=== PATIENT | female | born 1955 | race Caucasian/White ===

== ENCOUNTER → 2017-06-05 10:00 | Outpatient (CLI) | payer MEDICARE, SELFPAY ==
--- NOTE | 2017-06-05 10:04 | ADUL_ITS ---
Reason For Study: Atherosclerosis with claudication Right Velocities Ext. Iliac Artery, dist = 116.0 cm./sec. Common Femoral Artery, prox = 88.0 cm./sec. Anastomosis - 55.1 cm/s Absent color flow and doppler signal for length of graft. Profunda Femoral Artery = 48.1 cm./sec. Popliteal Artery, prox. = 23.1 cm./sec. Popliteal Artery, mid = 50.7 cm./sec. Popliteal Artery, dist = 25.9 cm./sec. Post. Tibial Artery, prox = 23.8 cm./sec. Post. Tibial Artery, mid = 12.1 cm./sec. Post. Tibial Artery, dist = 17.4 cm./sec. Peroneal Artery, prox = 20.5 cm./sec. Peroneal Artery, mid = 16.7 cm./sec. Peroneal Artery,dist = 25.7 cm./sec. Ant. Tibial Artery, prox = 42.9 cm./sec. Ant. Tibial Artery, mid = 15.2 cm./sec. Ant. Tibial Artery, dist = 8.1 cm./sec. Procedure Exam performed in department. Interpretation Summary 1. right SFA occluded. 2. Triphasic flow in [employer] and biphasic in profunda and monophasic from popliteal through tibials. Ordering Physician: Jeffrey Tolentino Referring Physician: Jeffrey Tolentino Performed By: Brunilda Tyler RVT
--- NOTE | 2017-06-06 12:14 | LEAS ---
Arterial Study - Arterial Study Arterial Study: Patient: ARIEL SCHULER ER Date of scan 06/05/[address] Tolentino Interpretation: Right lower extremity with pulsatile flow noted at the ankle with biphasic waveform noted of both vessels at the ankle with an JENNIFER 0.64 the posterior tibial 0.6 to the dorsalis pedis. Left lower extremity with again normal triphasic flow noted throughout both vessels at the ankle with an JENNIFER 0.97 in the posterior tibial 1.01 of the dorsalis pedis. Next Impression: 1. Right lower extremity with moderate arterial occlusive disease with an JENNIFER 0.64 2. Left lower extremity with no evidence of significant occlusive disease with an JENNIFER 1.0
--- NOTE | 2017-06-06 12:18 | LEAS_ITS ---
Arterial Study - Arterial Study Arterial Study: Patient: ARIEL SCHULER ER Date of scan 06/05/[address] Tolentino Interpretation: Right lower extremity with pulsatile flow noted at the ankle with biphasic waveform noted of both vessels at the ankle with an JENNIFER 0.64 the posterior tibial 0.6 to the dorsalis pedis. Left lower extremity with again normal triphasic flow noted throughout both vessels at the ankle with an JENNIFER 0.97 in the posterior tibial 1.01 of the dorsalis pedis. Next Impression: 1. Right lower extremity with moderate arterial occlusive disease with an JENNIFER 0.64 2. Left lower extremity with no evidence of significant occlusive disease with an JENNIFER 1.0
== END ==
PROVIDERS: Family Provider Family Medicine; PCP Family Medicine; Visit Provider Surgery Vascular Surgery
DX: I70.212 Atherosclerosis of native arteries of extremities with intermittent claudication, left leg (principal)
CPT/HCPCS: 93922; 93926

== ENCOUNTER → 2017-11-30 09:37 | Outpatient (CLI) | payer MEDICARE, SELFPAY ==
--- NOTE | 2017-11-30 09:40 | ADU_ITS ---
Reason For Study: Atherosclerosis with claudication Right Velocities Left Velocities Ext. Iliac Artery, dist = 91.1 cm./sec. Ext Iliac Artery, dist = 97.2 cm./sec. Common Femoral Artery, prox = 86.4 cm./sec. Common Femoral Artery, prox = 124.0 cm./sec. No color flow or doppler signal for length of Supf. Femoral Artery, prox = 107.0 cm./sec. graft. Supf. Femoral Artery, mid = 84.1 cm./sec. Profunda Femoral Artery = 118.0 cm./sec. Supf. Femoral Artery, dist = 78.6 cm./sec. Popliteal Artery, prox. = 31.0 cm./sec. Profunda Femoral Artery = 55.8 cm./sec. Popliteal Artery, mid = 27.9 cm./sec. Popliteal Artery, proximal, = 48.1 cm./sec. Popliteal Artery, dist = 28.7 cm./sec. Popliteal Artery, mid = 39.9 cm./sec. Post. Tibial Artery, prox = 21.2 cm./sec. Popliteal Artery, distal = 58.6 cm./sec. Post. Tibial Artery, mid = 14.5 cm./sec. Post. Tibial Artery, prox = 63.3 cm./sec. Post. Tibial Artery, dist = 21.6 cm./sec. Post Tibial Artery, mid = 27.0 cm./sec. Peroneal Artery, prox = 20.0 cm./sec. Post Tibial Artery, dist. = 44.0 cm./sec. Peroneal Artery, mid = 19.2 cm./sec. Peroneal Artery,dist. = 10.0 cm./sec. Peroneal Artery,dist = 12.0 cm./sec. Ant.Tibial Artery, prox = 45.2 cm./sec. Ant. Tibial Artery, prox = 13.9 cm./sec. Ant Tibial Artery, mid = 37.7 cm./sec. Ant. Tibial Artery, mid = 14.5 cm./sec. Ant. Tibial Artery, distal = 70.3 cm./sec. Ant. Tibial Artery, dist = 11.2 cm./sec. Procedure Exam performed in department. Interpretation Summary 1. Right SFa and BPg occluded and large collaterals with biphasic flow into foot. 2. Left leg with no stenosis seen. Ordering Physician: Jeffrey Tolentino Referring Physician: Eron Taveras Performed By: Brunilda Tyler RVT
--- NOTE | 2017-12-05 08:17 | LEAS ---
Arterial Study - Arterial Study Arterial Study: Patsy Moody Date of scan 11/30/[address] Tolentino History: Patient with claudication Interpretation: Right lower extremity has biphasic flow noted at the ankle of both vessels. With an JENNIFER 0.63 of the PT and 0.67 of the DP. Digit brachial index 0.57. Next Left lower extremity with triphasic flow noted throughout at the ankle with the PT at 0.96 DP 1.08. Digit brachial index 0.89. Impression: 1. Right leg with moderate arterial occlusive disease with an JENNIFER 0.67. 2. Left lower extremity with normal arterial flow at rest with an JENNIFER 1.08
== END ==
PROVIDERS: Family Provider Family Medicine; PCP Family Medicine; Visit Provider Surgery Vascular Surgery
DX: I70.213 Atherosclerosis of native arteries of extremities with intermittent claudication, bilateral legs (principal); I70.90 Unspecified atherosclerosis; I73.1 Thromboangiitis obliterans [Buerger's disease]; E11.9 Type 2 diabetes mellitus without complications; I10 Essential (primary) hypertension; M79.609 Pain in unspecified limb; G54.0 Brachial plexus disorders; Z87.891 Personal history of nicotine dependence
CPT/HCPCS: 93922; 93925

== ENCOUNTER → 2019-04-04 10:38 | Outpatient (CLI) | payer MEDICARE, SELFPAY ==
--- NOTE | 2019-04-04 10:44 | ART_ITS ---
Reason For Study: Claudication Procedure A bilateral lower extremity continuous wave Doppler with analog waveform analysis and ankle brachial indexes. Left Segmental Pressures Left brachial= 131mmHg. Left posterior tibial artery = 99mmHg. Left dorsalis pedis artery = 132mmHg. Left digit = 89 mmHg. The left dorsalis pedis waveforms are triphasic. The left posterior tibial artery waveforms are triphasic. Right Segmental Pressures Right brachial= 124mmHg. Right posterior tibial artery = 49mmHg. Right dorsalis pedis artery = 71mmHg. Right digit = 36 mmHg. The right dorsalis pedis waveforms are biphasic. The right posterior tibial artery waveforms are biphasic. Indices The right ankle brachial index by the dorsalis pedis is 0.54. The right ankle brachial index by the posterior tibial artery is 0.37. The right digital-brachial index is 0.27. The left ankle brachial index by the dorsalis pedis is 1.01. The left ankle brachial index by the posterior tibial artery is 0.76. The left digital-brachial index is 0.68. Interpretation Summary 1. Right leg with moderate occlussive disease and JENNIFER 0.54 and DBI 0.27. 2. Left leg normal at rst with JENNIFER 1.01 and DBI 0.68. Ordering Physician: Jeffrey Tolentino Referring Physician: darryl Person Performed By: Muriel Wu RVT
== END ==
PROVIDERS: Family Provider Student in an Organized Health Care Education/Training Program; PCP Student in an Organized Health Care Education/Training Program; Referring Provider Surgery Vascular Surgery; Visit Provider Surgery Vascular Surgery
DX: I70.213 Atherosclerosis of native arteries of extremities with intermittent claudication, bilateral legs (principal)
CPT/HCPCS: 93922

== ENCOUNTER → 2019-05-09 12:07 | Outpatient (CLI) | payer MEDICARE, SELFPAY ==
[2019-04-22 06:27] VITALS: BMI 30.8
[2019-05-09 13:19] VITALS: PULSE 103; PULSE 107; PULSE 109; PULSE 110; PULSE 111; O2SAT 93; O2SAT 94; O2SAT 95; O2SAT 96; O2SAT 97; O2SAT 98
--- NOTE | 2019-05-10 10:08 | PCM.PSN.6M ---
PSN 6 Minute Walk Test - 6 Minute Walk Test 6 Minute Walk Test: 6 Minute Walk Test PSN:6-Minute Walk Test Start: 05/09/19 13:19 Freq: Status: Active Protocol: [id number].6MINW Document 05/09/19 13:19 [facility] (Rec: 05/09/19 13:23 [facility] [id number]) 6 Minute Walk Test Date Performed 05/09/19 Time Performed 12:30 Height 5 ft Weight: 151 lb Weight in Pounds 151.[address]: Larry Foss Assistive device used: None Pre-test Oxygen Delivery Method Room Air Pulse Ox (%) 98 Pulse Rate (60-100 beats/min) 107 H Dyspnea Roman Scale (0-10) 1 1st minute Oxygen Delivery Method Room Air Pulse Ox (%) 97 Pulse Rate (60-100 beats/min) 107 H Dyspnea Roman Scale (0-10) 2 Number of Rests Taken 0 Reported Symptoms Increased Work of Breathing 2nd minute Oxygen Delivery Method Room Air Pulse Ox (%) 97 Pulse Rate (60-100 beats/min) 109 H Dyspnea Roman Scale (0-10) 3 Number of Rests Taken 1 Reported Symptoms Increased Work of Breathing 3rd minute Oxygen Delivery Method Room Air Pulse Ox (%) 96 Pulse Rate (60-100 beats/min) 110 H Dyspnea Roman Scale (0-10) 4 Number of Rests Taken 0 Reported Symptoms Increased Work of Breathing 4th minute Oxygen Delivery Method Room Air Pulse Ox (%) 95 Pulse Rate (60-100 beats/min) 111 H Dyspnea Roman Scale (0-10) 4 Number of Rests Taken 1 Reported Symptoms Increased Work of Breathing 5th minute Oxygen Delivery Method Room Air Pulse Ox (%) 94 Pulse Rate (60-100 beats/min) 109 H Dyspnea Roman Scale (0-10) 4 Number of Rests Taken 0 Reported Symptoms Increased Work of Breathing 6th minute Oxygen Delivery Method Room Air Pulse Ox (%) 93 Pulse Rate (60-100 beats/min) 110 H Dyspnea Roman Scale (0-10) 4 Number of Rests Taken 0 Reported Symptoms Increased Work of Breathing Post-test Oxygen Delivery Method Room Air Pulse Ox (%) 97 Pulse Rate (60-100 beats/min) 103 H Dyspnea Roman Scale (0-10) 1 Full Laps Walked 11 Partial Lap, Number of Tiles Walked 17 Total Distance Walked (ft) 666 - Interpretation Interpretation: The patient ambulated 666 feet over the course of 6 minutes beginning on room air without assistive devices or breaks. Pretesting oxygen saturation was noted to be 98% on room air. With ambulation, the anthony oxygen saturation was 93% at minute 6 of testing. This would represent a significant exertional oxygen desaturation. - Recommendations Recommendations: There is no indication for the use of supplemental oxygen at this time. However, close interval follow-up was recommended, given the degree of oxygen desaturation noted during this study.
== END ==
PROVIDERS: PCP Student in an Organized Health Care Education/Training Program; Referring Provider Internal Medicine Critical Care Medicine; Visit Provider Internal Medicine Critical Care Medicine
DX: J44.9 Chronic obstructive pulmonary disease, unspecified (principal)
CPT/HCPCS: 94618

== ENCOUNTER → 2019-05-15 10:35 | Outpatient (CLI) | payer MEDICARE, SELFPAY ==
[2019-04-22 06:27] VITALS: BMI 30.8
--- NOTE | 2019-05-15 10:37 | ADUL_ITS ---
Reason For Study: athersclerosis with claudication Right Velocities Ext. Iliac Artery, dist = 111.3 cm./sec. Common Femoral Artery, mid = 101.4 cm./sec. No flow could be demonstrated in the SFA or bypass graft. Profunda Femoral Artery = 60.9 cm./sec. Popliteal Artery, prox. = 121.7 cm./sec. Popliteal Artery, mid = 90.6 cm./sec. Popliteal Artery, dist = 57.7 cm./sec. Ant. Tibial Artery, prox = 44.1 cm./sec. Ant. Tibial Artery, mid = 53.7 cm./sec. Ant. Tibial Artery, dist = 13.6 cm./sec. Post. Tibial Artery, prox = 22.3 cm./sec. Post. Tibial Artery, mid = 15.4 cm./sec. Post. Tibial Artery, dist = 24.1 cm./sec. Peroneal Artery, prox = 34.5 cm./sec. Peroneal Artery, mid = 32.8 cm./sec. Peroneal Artery,dist = 15.3 cm./sec. Interpretation Summary 1. Right SFA occluded. Ordering Physician: Jeffrey Tolentino Performed By: Manolo Avilez RVT
== END ==
PROVIDERS: PCP Student in an Organized Health Care Education/Training Program; Referring Provider Surgery Vascular Surgery; Visit Provider Surgery Vascular Surgery
DX: I70.211 Atherosclerosis of native arteries of extremities with intermittent claudication, right leg (principal)
CPT/HCPCS: 93926

== ENCOUNTER → 2019-05-20 09:37 | Outpatient (CLI) | payer MEDICARE, SELFPAY ==
[2019-04-22 06:27] VITALS: BMI 30.8
--- NOTE | 2019-05-23 10:19 | PFT ---
INTRODUCTION: The patient is a 64-year-old female that presents for pulmonary function studies secondary to a diagnosis of COPD. Respiratory therapy reports good patient effort. Bronchodilators were used during testing. INTERPRETATION: Forced expiration spirometry demonstrates the presence of a moderate large airways obstructive ventilatory defect. There was a significant response to aerosolized bronchodilators based upon change noted in FEV1. Spirograms are of good quality and do not plateau indicating slow emptying of the lungs. Body plethysmography was performed and reveals an elevated RV to 131% of predicted, indicative of underlying air trapping. Diffusing capacity by single breath CO is reduced at 60% of predicted. IMPRESSION: Partially reversible moderate large airways obstructive ventilatory defect with associated air trapping and symmetric reduction in diffusing capacity.
== END ==
PROVIDERS: PCP Student in an Organized Health Care Education/Training Program; Referring Provider Internal Medicine Critical Care Medicine; Visit Provider Internal Medicine Critical Care Medicine
DX: J44.9 Chronic obstructive pulmonary disease, unspecified (principal)
CPT/HCPCS: 94060; 94726; 94729

== ENCOUNTER → 2019-08-12 05:51 | Outpatient (CLI) | payer MEDICARE, SELFPAY ==
[2019-07-03 09:20] VITALS: BMI 28.9
[2019-07-24 07:44] VITALS: BMI 29.2
--- NOTE | 2019-08-12 05:53 | ECHOD_ITS ---
Reason For Study: Chest pain Procedure This was a 2D Doppler, Color Flow transthoracic echocardiogram. The study was technically difficult. Exam performed in department. Left Ventricle Normal LV size. Left ventricular systolic function is normal. The estimated ejection fraction is 60 %. No evidence for diastolic dysfunction. No regional wall motion abnormalities noted. Right Ventricle Normal RV size. Normal systolic function. Atria Normal left atrium. Normal right atrium. No doppler evidence for ASD. Mitral Valve There is no mitral annular calcification. Mild focal mitral valve calcification, bileaflet. Trivial mitral valve insufficiency. Tricuspid Valve Normal tricuspid valve. Trivial tricuspid valve insufficiency. Unable to estimate RV systolic pressure/pulmonary artery pressure due to technically difficult study. Aortic Valve Trisinus/trileaflet aortic valve. Mild focal aortic valve thickening. Pulmonic Valve The pulmonic valve is not well visualized. Great Vessels Normal sized aortic root. Pericardium/Pleural No pericardial effusion. MMode/2D Measurements & Calculations LVIDd: 3.7 cm IVSd: 0.96 cm Ao root diam: 2.6 cm LVIDs: 2.6 cm LVPWd: 0.76 cm RVDd: 2.5 cm FS: 29.0 % LAV(MOD-bp): 27.1 ml EDV(MOD-sp4): 48.6 ml EDV(MOD-sp2): 47.2 ml LAV(MOD-bp) Indexed: 16.4 ml/m2 ESV(MOD-sp4): 18.5 ml EF(MOD-sp2): 61.7 % LAV(MOD-sp2): 29.3 ml EF(MOD-sp4): 61.9 % LAV(MOD-sp4): 22.7 ml SV(MOD-sp4): 30.1 ml SV(MOD-sp2): 29.1 ml LA A4 area: 11.8 cm2 LA dimension(2D): 3.5 cm RA A4 area: 9.2 cm2 Doppler Measurements & Calculations MV E max farzad: 108.4 cm/sec Lat Peak E' Farzad: 10.0 cm/sec Med Peak E' Farzad: 11.0 cm/sec MV A max farzad: 42.6 cm/sec E/E' lat: 10.8 E/E' med: 9.9 MV E/A: 2.5 Ao V2 max: 122.4 cm/sec LV V1 max: 86.3 cm/sec PA V2 max: 88.2 cm/sec Ao max P.0 mmHg LV V1 max P.0 mmHg Interpretation Summary The study was technically difficult. Left ventricular systolic function is normal. The estimated ejection fraction is 60 %. Mild focal mitral valve calcification, bileaflet. Trivial mitral valve insufficiency. Trivial tricuspid valve insufficiency. Mild focal aortic valve thickening. Unable to estimate RV systolic pressure/pulmonary artery pressure due to technically difficult study. No evidence for diastolic dysfunction. Ordering Physician: Rodrigue Agarwal Referring Physician: Woody Hurd Performed By: Yennifer Parkinson RDCS
--- NOTE | 2019-08-12 10:51 | STRESSREP_ITS ---
Stress Test Report Date: 08-12-2019 Procedure: Pharmacologic stress nuclear imaging study Indications: Chest pain; shortness of breath/dyspnea Consent: Per the patient Procedure: The patient underwent pharmacologic (Regadenoson) evaluation with a peak heart rate of 127 beats per minute (80 %predicted maximal heart rate) and a peak blood pressure of 122/80 mmHg. The baseline ECG demonstrated normal sinus rhythm. The peak pharmacologic ECG demonstrated no obvious ECG changes. There were no cardiac dysrhythmias pretest, during pharmacologic infusion, or recovery. There was no complaint of chest discomfort during pharmacologic infusion or recovery. The examination was discontinued secondary to completion of protocol. Impression: 1. Pharmacologic (Regadenoson) evaluation 2. Peak pharmacologic ECG with no obvious ECG changes. 3. There were no cardiac dysrhythmias pretest, during pharmacologic infusion, or recovery. 4. Nuclear images pending Myocardial perfusion imaging study: Technique: The patient was injected with 11.0 millicuries of technetium 99m Cardiolite and subsequently rest SPECT Cardiolite nuclear imaging was obtained in the horizontal long, vertical long, and short axis views. The patient underwent pharmacologic (Regadenoson) evaluation with a peak heart rate of 127 beats per minute (80 % percent predicted maximal heart rate) and a peak blood pressure of 122/80 mmHg. The patient was injected with 33.0 millicuries of technetium 99m Cardiolite and subsequently stress SPECT Cardiolite nuclear imaging was obtained in the horizontal long, vertical long, and short axis views. A gated Cardiolite study at peak stress was obtained. Interpretation: Rest and stress SPECT Cardiolite nuclear imaging status post realignment, normalization, and attenuation correction demonstrate relative uniform tracer uptake and myocardial perfusion appearing within normal limits. There is end systolic thickening and brightening. The gated Cardiolite study demonstrates myocardial thickening and inward wall motion. The reported LVEF is 85 %. Impression: 1. Rest and stress SPECT Cardiolite nuclear imaging demonstrate relative uniform tracer uptake and myocardial perfusion appearing within normal limits. 2. The gated Cardiolite study reports an LVEF of 85 %. This note was generated with [employer] software. It may contain incorrect words, spelling, and punctuation that were not noted in checking the note before signing.
== END ==
PROVIDERS: PCP Student in an Organized Health Care Education/Training Program; Referring Provider Internal Medicine Cardiovascular Disease; Visit Provider Internal Medicine Cardiovascular Disease
DX: R07.2 Precordial pain (principal); R07.9 Chest pain, unspecified
CPT/HCPCS: 78452; 93017; 93306; A9500; A4216; J2785

== ENCOUNTER → 2019-08-22 14:15 | Outpatient (CLI) | payer MEDICARE, SELFPAY ==
[2019-08-15 10:46] VITALS: BMI 29.2
[2019-08-22 15:08] LABS: Absolute Lymphocyte Count 2.49 X10^3/uL (0.83-4.51); Absolute Neutrophil Count 4.9 X10^3/uL (2.0-7.7); Basophil# 0.07 X10^3/uL; Basophil% 0.8 % (0-1); Eosinophils% 2.4 % (0-5); Hematocrit 41.9 % (37-47); Hemoglobin 13.7 g/dL (12.0-15.0); Lymphocyte # 2.49 X10^3/ul (4.0); Lymphocyte % 29.9 % (19-41); Mean Corp Hgb Conc 32.7 g/dL (32-36); Mean Corpuscular Hgb 27.4 pg (27.0-32.0); Mean Corpuscular Volume 83.8 fL (81-99); Mean Platelet Vol. 10.8 fl (6.2-12.0); Monocyte# 0.63 X10^3/uL; Monocyte% 7.6 % (0-10); NRBC Flagged by Analyzer 0 % (0-5); Neutrophil # 4.88 X10^3/uL (2.7-7.7); Neutrophil % 58.5 % (47-70); Platelet Count 347 K/mm3 (150-450); RBC Distribution Width CV 14.4 % (11.6-14.6); RBC Distribution Width SD 43.8 fl (35.1-43.9); White Blood Count 8.3 K/mm3 (4.4-11.0)
[2019-08-28 03:06] LABS: Aspirgillus flavus Negative (Neg:<1:1); Aspirgillus fumigatus Negative (Neg:<1:1); Aspirgillus niger Negative (Neg:<1:1)
[2019-08-28 05:18] LABS: Immunoglobulin E 9 IU/mL (6-495)
[2019-08-28 08:09] LABS: Alternaria alternata <0.10 kU/L (Class 0); Bermuda Grass <0.10 kU/L (Class 0); Bluegrass, Kentucky <0.10 kU/L (Class 0); Cat Hair/Dander, Standard <0.10 kU/L (Class 0); D farinae Mite <0.10 kU/L (Class 0); D pteronyssinus <0.10 kU/L (Class 0); Dog Epithelia <0.10 kU/L (Class 0); Elm, American White <0.10 kU/L (Class 0); Oak, White <0.10 kU/L (Class 0); Plantain, English <0.10 kU/L (Class 0); Ragweed, Short/Common <0.10 kU/L (Class 0)
[2019-08-28 11:29] LABS: Mouse Urine <0.10 kU/L (Class 0)
== END ==
PROVIDERS: PCP Student in an Organized Health Care Education/Training Program; Referring Provider Nurse Practitioner Acute Care; Visit Provider Nurse Practitioner Acute Care
DX: J45.909 Unspecified asthma, uncomplicated (principal); I44.7 Left bundle-branch block, unspecified
CPT/HCPCS: 36415; 82785; 85025; 86003; 86606

== ENCOUNTER → 2019-10-02 10:38 | Outpatient (CLI) | payer MEDICARE, SELFPAY ==
[2019-09-25 13:42] VITALS: BMI 30.9
== END ==
PROVIDERS: PCP Student in an Organized Health Care Education/Training Program; Referring Provider Internal Medicine Cardiovascular Disease; Visit Provider Internal Medicine Cardiovascular Disease
DX: R00.0 Tachycardia, unspecified (principal); I44.7 Left bundle-branch block, unspecified; E78.2 Mixed hyperlipidemia; I10 Essential (primary) hypertension
CPT/HCPCS: 93225; 93226

== ENCOUNTER → 2019-11-26 16:12 | Outpatient (CLI) | payer MEDICARE, SELFPAY ==
[2019-11-05 13:12] VITALS: BMI 30.9
[2019-11-27 07:10] LABS: SARS-COV-2 TOTAL ABS Nonreactive (Nonreactive)
== END ==
PROVIDERS: PCP Student in an Organized Health Care Education/Training Program; Visit Provider Nurse Practitioner Acute Care
DX: R06.02 Shortness of breath (principal)
CPT/HCPCS: 36415; 86769

== ENCOUNTER → 2019-12-09 09:37 | Outpatient (CLI) | payer MEDICARE, SELFPAY ==
[2019-11-05 13:12] VITALS: BMI 30.9
[2019-12-09 09:54] LABS: Absolute Lymphocyte Count 2.02 X10^3/uL (0.83-4.51); Absolute Neutrophil Count 3.8 X10^3/uL (2.0-7.7); Basophil# 0.06 X10^3/uL; Basophil% 0.9 % (0-1); Eosinophil# 0.19 X10^3/uL; Eosinophils% 2.8 % (0-5); Hematocrit 42.9 % (37-47); Hemoglobin 13.7 g/dL (12.0-15.0); Lymphocyte # 2.02 X10^3/ul (4.0); Lymphocyte % 30.1 % (19-41); Mean Corp Hgb Conc 31.9 g/dL (32-36); Mean Corpuscular Hgb 27.2 pg (27.0-32.0); Mean Corpuscular Volume 85.1 fL (81-99); Mean Platelet Vol. 10.4 fl (6.2-12.0); Monocyte# 0.51 X10^3/uL; Monocyte% 7.6 % (0-10); NRBC Flagged by Analyzer 0 % (0-5); Neutrophil # 3.82 X10^3/uL (2.7-7.7); Neutrophil % 57.1 % (47-70); Platelet Count 322 K/mm3 (150-450); RBC Distribution Width CV 15.2 % (11.6-14.6); Red Blood Count 5.04 M/mm3 (4.2-5.4); White Blood Count 6.7 K/mm3 (4.4-11.0)
== END ==
PROVIDERS: PCP Student in an Organized Health Care Education/Training Program; Referring Provider Nurse Practitioner Acute Care; Visit Provider Nurse Practitioner Acute Care
DX: R06.2 Wheezing (principal)
CPT/HCPCS: 36415; 85025

== ENCOUNTER → 2019-12-15 07:30 | Outpatient (CLI) | payer MEDICARE, SELFPAY ==
[2019-11-05 13:12] VITALS: BMI 30.9
--- NOTE | 2019-12-15 07:31 | CT_ITS ---
STUDY: CT CHEST WITHOUT CONTRAST REASON FOR EXAM: Female, 64 years old. EVALUATE FOR BRONCH ECTASIS. 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 Multiplanar coronal and sagittal images were reformatted. Individualized dose optimization techniques were used for this CT. COMPARISON: None. FINDINGS: Small bilateral benign-appearing axillary lymph nodes. There is evidence of emphysematous changes with centrilobular changes more prominent in the upper lobes. Minimal linear scarring in the medial aspect of the lingular segment of the left upper lobe. There is no evidence of bronchiectasis. There is no demonstrated pleural abnormality. There are calcifications of the coronary arteries. There are multiple small lymph nodes within the mediastinum, which are normal in size and morphology most compatible with reactive lymph hyperplasia. Calcified right hilar lymph nodes. Normal unenhanced pulmonary arteries. There is atherosclerotic calcification of the aortic arch with tortuosity and elongation of the aortic arch and descending thoracic aorta. There are degenerative changes of the thoracic spine. There is no demonstrated abnormality of the visualized upper abdomen. CT/Chest without Contrast IMPRESSION: Emphysematous changes. Mild linear scarring in the lingular segment of left upper lobe. There is no evidence of bronchiectasis. Electronically Signed: Eddi Keane, at 10:54 EDT , Service support ,
== END ==
PROVIDERS: PCP Student in an Organized Health Care Education/Training Program; Referring Provider Nurse Practitioner Acute Care; Visit Provider Nurse Practitioner Acute Care
DX: J47.0 Bronchiectasis with acute lower respiratory infection (principal)
CPT/HCPCS: 71250

== ENCOUNTER → 2020-05-12 12:46 | Outpatient (CLI) | payer MEDICARE, SELFPAY ==
[2020-04-15 09:14] VITALS: BMI 32.0
--- NOTE | 2020-05-12 12:50 | ADUL_ITS ---
Reason For Study: Atherosclerosis Right Velocities Ext. Iliac Artery, dist = 103.4 cm./sec. Common Femoral Artery, mid = 101.5 cm./sec. SFA is occluded with retrograde flow noted at distal SFA. Bypass graft from prox thigh to knee is occluded. Profunda Femoral Artery = 58.5 cm./sec. Popliteal Artery, prox. = 26.1 cm./sec. Popliteal Artery, mid = 19.7 cm./sec. Popliteal Artery, dist = 28.4 cm./sec. Post. Tibial Artery, prox = 26.7 cm./sec. Post. Tibial Artery, mid = 115.9 cm./sec. Post. Tibial Artery, dist = 19.4 cm./sec. No flow noted at proximal peroneal artery. Peroneal Artery, mid = 21 cm./sec. Peroneal Artery,dist = 24.5 cm./sec. Ant. Tibial Artery, prox = 15.9 cm./sec. Ant. Tibial Artery, mid = 17.2 cm./sec. Ant. Tibial Artery, dist = 9.7 cm./sec. Interpretation Summary Right femoral and bypass graft occluded. Biphasic flow noted through tibials. Ordering Physician: Jeffrey Tolentino Referring Physician: Woody Hurd Performed By: Muriel Wu RVT
--- NOTE | 2020-05-12 12:50 | ART_ITS ---
Reason For Study: Atherosclerosis Procedure A bilateral lower extremity continuous wave Doppler with analog waveform analysis and ankle brachial indexes. Left Segmental Pressures Left brachial= 155mmHg. Left posterior tibial artery = 139mmHg. Left dorsalis pedis artery = 168mmHg. Left digit = 90 mmHg. The left dorsalis pedis waveforms are triphasic. The left posterior tibial artery waveforms are triphasic. Right Segmental Pressures Right brachial= 145mmHg. Right posterior tibial artery = 97mmHg. Right dorsalis pedis artery = 94mmHg. The right dorsalis pedis waveforms are biphasic. The right posterior tibial artery waveforms are biphasic. Indices The right ankle brachial index by the dorsalis pedis is 0.61. The right ankle brachial index by the posterior tibial artery is 0.63. The left ankle brachial index by the dorsalis pedis is 1.08. The left ankle brachial index by the posterior tibial artery is 0.90. The left digital-brachial index is 0.58. Interpretation Summary Right biphasic and left triphasic and JENNIFER 0.63 and 1.08. Ordering Physician: Jeffrey Tolentino Referring Physician: Woody Hurd Performed By: Muriel Wu RVT
== END ==
PROVIDERS: PCP Student in an Organized Health Care Education/Training Program; Referring Provider Surgery Vascular Surgery; Visit Provider Surgery Vascular Surgery
DX: I77.1 Stricture of artery (principal); I70.213 Atherosclerosis of native arteries of extremities with intermittent claudication, bilateral legs; I11.9 Hypertensive heart disease without heart failure; J44.9 Chronic obstructive pulmonary disease, unspecified; E11.9 Type 2 diabetes mellitus without complications; I73.1 Thromboangiitis obliterans [Buerger's disease]; G54.0 Brachial plexus disorders; Z87.891 Personal history of nicotine dependence
CPT/HCPCS: 93922; 93926

== ENCOUNTER → 2021-01-25 06:49 | Outpatient (CLI) | payer MEDICARE, SELFPAY ==
--- NOTE | 2021-01-25 08:38 | STRESSREP_ITS ---
Stress Test Report Date: 01-25-2021 Procedure: Pharmacologic stress nuclear imaging study Indications: Chest pain; peripheral vascular disease Consent: Per the patient Procedure: The patient underwent pharmacologic (Regadenoson 0.4mg ) evaluation with a peak heart rate of 111 beats per minute (70%predicted maximal heart rate) and a peak blood pressure of 128/70 mmHg. The baseline ECG demonstrated sinus rhythm; nonspecific ST/T wave abnormality. The peak pharmacologic ECG demonstrated no obvious ECG changes. There was a rare premature ectopic complex preinfusion. There was no complaint of chest discomfort during pharmacologic infusion or recovery. The examination was discontinued secondary to completion of protocol. Impression: 1. Pharmacologic (Regadenoson) evaluation 2. Peak pharmacologic ECG with continued nonspecific ST and T wave changes with no obvious ECG changes. 3. There was a rare premature ectopic complex preinfusion. 4. Nuclear images pending Myocardial perfusion imaging study: Technique: The patient was injected with 11.9 millicuries of technetium 99m Cardiolite and subsequently rest SPECT Cardiolite nuclear imaging was obtained in the horizontal long, vertical long, and short axis views. The patient underwent pharmacologic (Regadenoson) evaluation with a peak heart rate of 111 beats per minute (70% percent predicted maximal heart rate) and a peak blood pressure of 128/70 mmHg. The patient was injected with 33.2 millicuries of technetium 99m Cardiolite and subsequently stress SPECT Cardiolite nuclear imaging was obtained in the horizontal long, vertical long, and short axis views. A gated Cardiolite study at peak stress was obtained. Interpretation: Rest and stress SPECT Cardiolite nuclear imaging status post realignment, normalization, and attenuation correction demonstrate relative uniform tracer uptake and myocardial perfusion appearing within normal limits. There is end systolic thickening and brightening. The gated Cardiolite study demonstrates myocardial thickening and inward wall motion. The reported LVEF is 45%. Impression: 1. Relative uniform tracer uptake and myocardial perfusion appearing within normal limits. 2. The gated Cardiolite study reports an LVEF of 45%. This note was generated with [employer] software. It may contain incorrect words, spelling, and punctuation that were not noted in checking the note before signing.
== END ==
PROVIDERS: PCP Student in an Organized Health Care Education/Training Program; Referring Provider Internal Medicine Cardiovascular Disease; Visit Provider Internal Medicine Cardiovascular Disease
DX: R07.9 Chest pain, unspecified (principal); I73.9 Peripheral vascular disease, unspecified
CPT/HCPCS: 78452; 93017; A9500; A4216; J2785

== ENCOUNTER 2021-05-17 09:54 | Outpatient (CLI) | payer MEDICARE, SELFPAY ==
--- NOTE | 2021-05-17 09:59 | ART_ITS ---
Reason For Study: Stricture of artery Procedure A bilateral lower extremity continuous wave Doppler with analog waveform analysis and ankle brachial indexes. Left Segmental Pressures Left brachial= 134mmHg. Left posterior tibial artery = 123mmHg. Left dorsalis pedis artery = 138mmHg. Left digit = 112 mmHg. The left dorsalis pedis waveforms are triphasic. The left posterior tibial artery waveforms are triphasic. Right Segmental Pressures Right brachial= 131mmHg. Right posterior tibial artery = 70mmHg. Right dorsalis pedis artery = 78mmHg. Right digit = 39 mmHg. The right dorsalis pedis waveforms are biphasic. The right posterior tibial artery waveforms are biphasic. Indices The right ankle brachial index by the dorsalis pedis is 0.58. The right ankle brachial index by the posterior tibial artery is 0.52. The right digital-brachial index is 0.29. The left ankle brachial index by the dorsalis pedis is 1.03. The left ankle brachial index by the posterior tibial artery is 0.92. The left digital-brachial index is 0.84. VL/Ankle Brachial Index Interpretation Summary Right leg with biphasic flow and an JENNIFER 0.58. Good waveform noted. Left lower e xtremity with normal triphasic flow and an JENNIFER 1.03. Digit brachial index of 0.29 and 0.84. Ordering Physician: Jeffrey Tolentino Referring Physician: Woody Hurd Performed By: Muriel Wu RVT
--- NOTE | 2021-05-17 10:00 | ADUL_ITS ---
Reason For Study: Stricture of artery Right Velocities Ext. Iliac Artery, dist = 97.9 cm./sec. Common Femoral Artery, mid = 112.5 cm./sec. Bypass graft from prox thigh to knee is occluded. SFA is occluded, with a branch providing flow to distal SFA. Supf Femoral Artery, dist. = 28.1 cm./sec. Profunda Femoral Artery = 68.3 cm./sec. Popliteal Artery, mid = 34.7 cm./sec. Post. Tibial Artery, prox = 24.9 cm./sec. Post. Tibial Artery, mid = 23.2 cm./sec. Post. Tibial Artery, dist = 24.9 cm./sec. Peroneal Artery, prox = 28.4 cm./sec. Peroneal Artery, mid = 29.3 cm./sec. Peroneal Artery,dist = 24.1 cm./sec. Ant. Tibial Artery, prox = 42.4 cm./sec. Ant. Tibial Artery, mid = 24.1 cm./sec. Ant. Tibial Artery, dist = 14.5 cm./sec. Procedure Exam performed in department. /US Art Duplex Unilat Lower Ext Interpretation Summary Right lower extremity SFA and bypass graft are occluded. Good collateral flow t o the popliteal down through the tibials. Ordering Physician: Jeffrey Tolentino Referring Physician: Woody Hurd Performed By: Muriel Wu RVT
== END 2021-05-17 23:59 | disposition home or self-care (01) ==
LOC: CVS 09:56
PROVIDERS: PCP Student in an Organized Health Care Education/Training Program; Referring Provider Surgery Vascular Surgery; Visit Provider Surgery Vascular Surgery
DX: I77.1 Stricture of artery (principal); J44.9 Chronic obstructive pulmonary disease, unspecified; E11.59 Type 2 diabetes mellitus with other circulatory complications; I73.1 Thromboangiitis obliterans [Buerger's disease]; I70.90 Unspecified atherosclerosis; M79.609 Pain in unspecified limb; G54.0 Brachial plexus disorders; I10 Essential (primary) hypertension; Z87.891 Personal history of nicotine dependence
CPT/HCPCS: 93922; 93926

== ENCOUNTER 2021-06-15 06:36 | Day surgery (SDC) | payer MEDICARE, SELFPAY ==
[2021-06-14 11:33] VITALS: BMI 29.2
[2021-06-15 07:03] LABS: Hematocrit 43.2 % (37-47); Hemoglobin 15.1 g/dL (12.0-15.0); Mean Corpuscular Hgb 28.9 pg (27.0-32.0); Mean Corpuscular Volume 82.6 fL (81-99); Platelet Count 285 K/mm3 (150-450); RBC Distribution Width CV 14.1 % (11.6-14.6); RBC Distribution Width SD 42.4 fl (35.1-43.9); Red Blood Count 5.23 M/mm3 (4.2-5.4); White Blood Count 7.1 K/mm3 (4.4-11.0)
[2021-06-15 07:16] LABS: Albumin, Serum 3.6 g/dL (3.2-5.0); BUN 17 mg/dL (7-18); BUN/Creat Ratio 17.7 RATIO (10-20); Calcium,Total 9.1 mg/dL (8.5-10.1); Chloride 98 mmol/L (98-107); Creatinine, Serum 0.96 mg/dL (0.55-1.02); EST Glomerular Filtration Rate 62 mL/min (>60); Est Glom Filt Rate - Afr Amer 75 mL/min (>60); Estimated Creatinine Clearance 42.52 ml/min; Glucose 139 mg/dL (74-106); Phosphorus 4.3 mg/dL (2.5-4.9); Potassium 4.1 mmol/L (3.5-5.1); Sodium Level 131 mmol/L (136-145)
--- NOTE | 2021-06-15 08:27 | PCM.OPRPT ---
Problems Associated Problem List Diagnoses (1) PVD (peripheral vascular disease): Report of Operation Date of Procedure: 06/15/21 Pre-Operative Diagnosis: PAD Post-Operative Diagnosis: Same Surgery/Procedure Performed:: 1. Ultrasound-guided access retrograde left common femoral artery. 2. Right lower extremity angiogram with catheter placed into the profunda artery. 3. Balloon angioplasty of the profunda into the common femoral artery with a 5 x 80 balloon. 4. Closure with Mynx Surgeon: Jeffrey Tolentino Type of Anesthesia: IV Sedation Description of Procedure: Brought to the Mattress Inspector. Underwent appropriate timeout consent. Underwent sedation. Prepped and draped in a sterile fashion. We did ultrasound-guided access retrograde in the left common femoral artery. Put a Glidewire up and then a 5 Hebrew sheath. We got up and over the bifurcation. We gave 5000 units of heparin. Did an angiogram from the right iliac artery. This showed extensive collaterals noted around the area of the profunda. The common femoral artery is widely patent. The femoral was occluded from the origin. We looked in different views and the main profunda branch appeared to have some mild to moderate stenosis in the proximal segment this was filling into the main collaterals. We then got a wire through this area and ballooned with a 5 mm balloon. This was before it split into the 2 main branches feeding down the collaterals. We inflated for over 2 minutes. Completion did appear to be improved. There is better flow noted through these collaterals. There is a small little extravasation from the distal profunda branch. We then did not image below the knee that showed collaterals filling the anterior tibial, the tibial peroneal trunk and the peroneal with the anterior tibial and tibial peroneal trunk having runoff to the ankle. Posterior tib had some flow proximally that was occluded. We then removed out the sheath to deployed a minx with good hemostasis. Is then brought to recovery stable condition. Sedation: This 66-year-old female underwent moderate sedation given by Dr. Jeffrey Tolentino. She was monitored EKG blood pressure and pulse ox for over the 30 minutes of the procedure. See the EMR for the complete record.
== END 2021-06-15 23:59 | disposition home or self-care (01) ==
PROVIDERS: PCP Student in an Organized Health Care Education/Training Program; Referring Provider Surgery Vascular Surgery; Visit Provider Surgery Vascular Surgery
DX: E11.51 Type 2 diabetes mellitus with diabetic peripheral angiopathy without gangrene (principal); I77.1 Stricture of artery; I73.1 Thromboangiitis obliterans [Buerger's disease]; G54.0 Brachial plexus disorders; J44.9 Chronic obstructive pulmonary disease, unspecified; I10 Essential (primary) hypertension; F32.A Depression, unspecified; M19.90 Unspecified osteoarthritis, unspecified site; Z86.718 Personal history of other venous thrombosis and embolism; Z87.891 Personal history of nicotine dependence
CPT/HCPCS: 36245; 36415; 37224; 75710; 76937; 80069; 85027; 93005; 99152; 99153; C1760; Q9967; C1725; C1769; C1894

== ENCOUNTER → 2022-05-03 | Outpatient (CLI) | payer MEDICARE, BC, SELFPAY ==
--- NOTE | 2022-05-03 09:29 | ADUL_ITS ---
Reason For Study: Stricture of artery Right Velocities Ext. Iliac Artery, dist = 62.3 cm./sec. Common Femoral Artery, mid = 95.3 cm./sec. 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 SFA is occluded, with a branch providing flow to distal SFA. Supf Femoral Artery, dist. = 54.6 cm./sec. Profunda Femoral Artery = 60.9 cm./sec. Popliteal Artery, mid = 29.3 cm./sec. Post. Tibial Artery, prox = 15.9 cm./sec. Post. Tibial Artery, mid = 12.9 cm./sec. Post. Tibial Artery, dist = 14.4 cm./sec. Peroneal Artery, prox = 17.9 cm./sec. Peroneal Artery, mid = 15.4 cm./sec. Peroneal Artery,dist = 10.4 cm./sec. Ant. Tibial Artery, prox = 12.9 cm./sec. Ant. Tibial Artery, mid = 12.4 cm./sec. Ant. Tibial Artery, dist = 11.9 cm./sec. Procedure Exam performed in department. /US Art Duplex Unilat Lower Ext Interpretation Summary Right femoral artery occluded. Ordering Physician: Jeffrey Tolentino Referring Physician: Woody Hurd Performed By: Muriel Wu RVT
--- NOTE | 2022-05-03 09:29 | ART_ITS ---
Reason For Study: Stricture of artery Procedure A bilateral lower extremity continuous wave Doppler with analog waveform analysis and ankle brachial indexes. Left Segmental Pressures Left brachial= 131mmHg. Left posterior tibial artery = 129mmHg. Left dorsalis pedis artery = 133mmHg. Left digit = 67 mmHg. The left dorsalis pedis waveforms are triphasic. The left posterior tibial artery waveforms are triphasic. Right Segmental Pressures Right brachial= 133mmHg. Right posterior tibial artery = 87mmHg. Right dorsalis pedis artery = 85mmHg. Right digit = 49 mmHg. The right dorsalis pedis waveforms are biphasic. The right posterior tibial artery waveforms are biphasic. Indices The right ankle brachial index by the dorsalis pedis is 0.64. The right ankle brachial index by the posterior tibial artery is 0.65. The right digital-brachial index is 0.37. The left ankle brachial index by the dorsalis pedis is 1.00. The left ankle brachial index by the posterior tibial artery is 0.97. The left digital-brachial index is 0.50. VL/Ankle Brachial Index Interpretation Summary Moderate occlussive disease right leg with biphasic flow and JENNIFER 0.65 and left JENNIFER triphasic and 1.0. Ordering Physician: Jeffrey Tolentino Referring Physician: Woody Hurd Performed By: Muriel Wu RVT
== END | disposition home or self-care (01) ==
LOC: CVS 09:27
PROVIDERS: PCP Student in an Organized Health Care Education/Training Program; Referring Provider Surgery Vascular Surgery; Visit Provider Surgery Vascular Surgery
DX: I70.90 Unspecified atherosclerosis (principal); I77.1 Stricture of artery; Z48.812 Encounter for surgical aftercare following surgery on the circulatory system
CPT/HCPCS: 93922; 93926

== ENCOUNTER → 2022-07-14 | Outpatient (CLI) | payer MEDICARE, BC, SELFPAY ==
[2022-07-14 08:35] VITALS: BP 120/61; PULSE 94; RESP 16; TEMP 35.8; O2SAT 100; BMI 28.3
[2022-07-14] MEDS: Benralizumab 30 MG/ML Syringe SC (08:41)
== END | disposition home or self-care (01) ==
PROVIDERS: PCP Student in an Organized Health Care Education/Training Program; Referring Provider Nurse Practitioner Acute Care; Visit Provider Nurse Practitioner Acute Care
DX: J45.50 Severe persistent asthma, uncomplicated (principal)
CPT/HCPCS: 96372; J0517

== ENCOUNTER 2022-08-03 09:01 | Emergency (ER) | payer MEDICARE, BC, SELFPAY ==
[2022-08-03 09:02] VITALS: BP 159/99; PULSE 84; RESP 14; TEMP 36.6; O2SAT 100
[2022-08-03] MEDS: oxyCODONE 5 MG Tablet PO (10:01)
[2022-08-03] MEDS: fentaNYL 100 MCG/2 ML Ampul 50 MCG IM (10:02)
[2022-08-03 10:04] VITALS: BMI 37.3
--- NOTE | 2022-08-03 11:08 | ED.VIS.BACK ---
HPI History of Present Illness Chief Complaint: Back Informant: patient Onset/Context/Timing Onset: Today Context: Sudden Onset Injury: bending Timing: Continuous Quality: Sharp and Aching Location: Lumbar and Right Leg Worsened by: improves with Movement and Ambulation Relieved by: Nothing Associated Symptoms Associated Symptoms: Radiation to Right Leg; Negative for Numbness, Tingling, Radiation to Left Leg, Fever, Abdominal Pain, Dysuria, Unable to Ambulate, Unable to Transfer, Urinary Retention, Urinary Incontinence, Constipation or Fecal Incontinence Narrative Narrative: Patient presents with back pain that began today. 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 Patient states it began rather suddenly. Patient describes it as sharp and aching. Patient states it is over the lower lumbar area. Patient states it radiates down her right leg. Patient states it is worse with movement. Patient denies any bowel or bladder changes. Patient denies any saddle anesthesia. Patient denies any trauma or injury. Patient states this is similar to prior episodes of back pain. Patient states she has a history of chronic back pain but does not see a pain management physician at this time. [facility] Medical History ADD (attention deficit disorder) Anxiety Arthritis Bowel disease Bronchitis Buerger's disease Chronic pain syndrome COPD (chronic obstructive pulmonary disease) Depression Diarrhea Essential hypertension Foot drop Gastric ulcer GERD (gastroesophageal reflux disease) Hemorrhoids Hoarseness of voice HTN (hypertension) Hyponatremia LBBB (left bundle branch block) Lumbago Major depressive disorder in remission Migraine with aura Mixed hyperlipidemia Neuropathy Other acquired deformity of toe Precordial pain Psychophysiologic insomnia PVD (peripheral vascular disease) RLS (restless legs syndrome) Sinus tachycardia TIA (transient ischemic attack) TOS (thoracic outlet syndrome) Type 2 diabetes mellitus Home Medications cyclobenzaprine 5 mg tablet 10 mg PO QHS 09/25/19 [History Last Taken Unknown] divalproex 500 mg tablet,extended release 24 hr 500 mg PO DAILY 09/25/19 [History Last Taken Unknown] bupropion HCl 300 mg 24 hr tablet, extended release (Wellbutrin XL) 300 mg PO QAM 09/08/20 [History Last Taken Unknown] empagliflozin 25 mg tablet 25 mg PO DAILY 12/01/20 [History Last Taken Unknown] montelukast 10 mg tablet 10 mg PO DAILY 12/01/20 [History Last Taken Unknown] citalopram 10 mg tablet 20 mg PO DAILY 06/01/21 [History Last Taken Unknown] glimepiride 4 mg tablet 2 mg PO DAILY 06/01/21 [History Last Taken Unknown] hydroxyzine HCl 25 mg tablet 25 mg PO TID PRN Hypertension 06/01/21 [History Last Taken Unknown] atorvastatin 40 mg tablet 40 mg PO QHS 11/25/21 [History Last Taken Unknown] cilostazol 50 mg tablet mg PO 11/25/21 [History Last Taken Unknown] esomeprazole magnesium 40 mg capsule,delayed release 40 mg PO DAILY 11/25/21 [History Last Taken Unknown] loratadine 10 mg tablet 10 mg PO DAILY 11/25/21 [History Last Taken Unknown] sumatriptan succinate 100 mg tablet mg PO 11/25/21 [History Last Taken Unknown] losartan 25 mg tablet 25 mg PO DAILY #90 tabs 01/17/22 [Rx Last Taken Unknown] metoprolol succinate 100 mg tablet,extended release 24 hr 100 mg PO DAILY #90 tabs 01/17/22 [Rx Last Taken Unknown] budesonide 160 mcg-glycopyr 9 mcg-formot 4.8 mcg/actuation HFA inhaler (Breztri Aerosphere) 2 inh inhalation QAM AND QPM #10.7 grams 03/23/22 [Rx Last Taken Unknown] benralizumab 30 mg/mL subcutaneous syringe (Fasenra) 30 mg subcut Q8W 3 doses #1 mL 05/16/22 [Rx Last Taken Unknown] albuterol sulfate 90 mcg/actuation aerosol inhaler 1 - 2 puff inhalation Q6H PRN PRN Wheezing #8.5 grams 07/10/22 [Rx Last Taken Unknown] oxycodone-acetaminophen 5 mg-325 mg tablet 1 tab PO Q6H PRN PRN Pain 3 days #12 TABLETS 08/03/22 [Rx Last Taken Unknown] Allergy/AdvReac Type Severity Reaction Status Date / Time adhesive tape Allergy Rash Verified 08/03/22 09:02 bacitracin Allergy unknown Verified 08/03/22 09:02 [From Neosporin ([id number])] latex Allergy Rash Verified 08/03/22 09:02 morphine Allergy Rash Verified 08/03/22 09:02 neomycin Allergy unknown Verified 08/03/22 09:02 [From Neosporin ([id number])] polymyxin B Allergy unknown Verified 08/03/22 09:02 [From Neosporin ([id number])] Family History Father Cancer throat; lung; prostate Heart disease CVA (cerebral vascular accident) Hypercholesterolemia Grandmother Heart disease Son Diabetes Type 1 Brother Diabetes Type 1 Heart disease Myocardial infarction, Onset Age: 60 Sister Cardiac murmur Heart aneurysm Surgical History H/O tubal ligation H/O vaginal hysterectomy History of appendectomy History of arterial bypass of lower extremity Hx laparoscopic cholecystectomy Social History Smoking Status: Former smoker how long ago did patient quit smokin second hand exposure: Yes ROS ROS ED Constitutional Constitutional ED: Denies chills or fever(s) Eyes Eyes: Denies blurry vision or change in vision ENT ENT ED: Denies rhinorrhea or sore throat Cardiovascular Cardiovascular: Denies chest pain or palpitations Respiratory/Chest Respiratory/Chest: Denies cough or dyspnea Gastrointestinal Gastrointestinal: Denies nausea or vomiting Genitourinary Genitourinary ED: Denies dysuria or hematuria Musculoskeletal Musculoskeletal: Reports back pain; Denies neck pain Integumentary Denies abscess or rash Neurologic Neurologic: Denies headache(s) or weakness Allergic/Immunologic Allergic/Immunologic ED: Denies mouth swelling or urticaria EXAM Physical Exam Const Vital Signs: 08/03/22 09:02 Temperature 98 F Temperature Source Temporal Pulse Rate 84 Respiratory Rate 14 Blood Pressure 159/99 H Blood Pressure Mean 119 Pulse Ox 100 Oxygen Delivery Method Room Air Positive well nourished and well developed General Appearance ED: well developed and NAD HEENT Reports moist mucous membranes Neck supple and no JVD Resp normal respiratory effort and clear to auscultation bilaterally Cardio regular rate and regular rhythm GI normal to inspection, nondistended, normoactive bowel sounds, soft to palpation and non-tender Back/Spine Back/Spine Narrative: There is tenderness over the right lower lumbar paraspinal muscles. There is no bony crepitance or step-off. Range of motion was limited in all motions of the lumbar spine secondary to pain. Strength is 5/5 bilaterally in the lower extremities. There are no sensory deficits noted. Deep tendon reflexes were 2/4 bilaterally in the lower extremities. Lumbar Spine / Lower Back: ROM limited Neuro oriented x3 and no sensory deficits noted Sensorium / Orientation: alert Motor Exam: strength 5/5 throughout Deep Tendon Reflexes: Rt Patellar (L4): 2+, Lt Patellar (L4): 2+, Rt Ankle (S1): 2+ and Lt Ankle (S1): 2+ Deep Tendon Reflexes Back: Rt Patellar (L4): 2+, Lt Patellar (L4): 2+, Rt Ankle (S1): 2+ and Lt Ankle (S1): 2+ Psych mental status grossly normal MDM MDM MDM Narrative Medical decision making narrative: Differential diagnosis includes skeletal pain, radiculopathy, and lumbosacral strain. Patient was given a dose of fentanyl and oxycodone here. Patient is feeling better on reevaluation. Patient is able to ambulate without difficulty. I do not feel x-rays are necessary at this time since there is no trauma or direct injury. Patient is feeling better on reevaluation. Patient was able to ambulate here in the emergency department. Patient was given a prescription for Percocet. Patient was given referral for a pain management physician. Patient was instructed to follow-up with her primary care physician in 5 to 7 days for further management of her pain. Patient understood and was agreeable with the plan. All questions were answered. Discharge Plan Triage Chief Complaint: Back ED Provider: Dar Meyer Dx/Rx/DC Orders Clinical Impression: Acute exacerbation of chronic low back pain Instructions: ED Back Pain (Acute or Chronic), ED Back Sprain/Strain Prescriptions: New oxycodone-acetaminophen [oxycodone-acetaminophen] 5-325 mg tablet 1 tab PO Q6H PRN PRN (Reason: Pain) 3 Days Qty: 12 0RF No Action cyclobenzaprine 5 mg tablet 10 mg PO QHS bupropion HCl [Wellbutrin XL] 300 mg tablet extended release 24 hr 300 mg PO QAM Jardiance 25 mg tablet 25 mg PO DAILY montelukast 10 mg tablet 10 mg PO DAILY citalopram 10 mg tablet 20 mg PO DAILY glimepiride 4 mg tablet 2 mg PO DAILY hydroxyzine HCl 25 mg tablet 25 mg PO TID PRN (Reason: Hypertension) sumatriptan succinate 100 mg tablet PO cilostazol 50 mg tablet PO Breztri Aerosphere 160-9-4.8 mcg/actuation HFA aerosol inhaler 2 inh INHALATION QAM AND QPM Qty: 10.7 5RF divalproex 500 mg tablet extended release 24 hr 500 mg PO DAILY atorvastatin 40 mg tablet 40 mg PO QHS esomeprazole magnesium 40 mg capsule,delayed release(DR/EC) 40 mg PO DAILY loratadine 10 mg tablet 10 mg PO DAILY losartan 25 mg tablet 25 mg PO DAILY Qty: 90 3RF metoprolol succinate 100 mg tablet extended release 24 hr 100 mg PO DAILY Qty: 90 3RF Fasenra 30 mg/mL syringe 30 mg subcut Q8W Qty: 1 6RF albuterol sulfate 90 mcg/actuation HFA aerosol inhaler 1 - 2 puff inhalation Q6H PRN PRN (Reason: Wheezing) Qty: 8.5 11RF Primary Care Provider: Woody Hurd Referrals: Efe Baird MD [Med Staff - Active Staff] - 5-7 Days Woody Hurd DO [Primary Care Provider] - 3-5 Days Disposition Disposition: Home, Self Care
--- NOTE | 2022-08-03 11:50 | CM.ED ---
Social Work SW introduced self and role to patient. Discussed advance directives with patient and spouse. Pt reports they had a HCPOA and Living Will completed by an state attorney. Requested patient provide documents to the hospital when able to have on file. Ara Cleveland MSW, PRODUCT DEVELOPMENT TECHNICIAN
== END 2022-08-03 11:34 | disposition home or self-care (01) ==
PROVIDERS: Emergency Provider Emergency Medicine; PCP Student in an Organized Health Care Education/Training Program; Visit Provider Emergency Medicine
DX: M54.50 Low back pain, unspecified (principal); J44.9 Chronic obstructive pulmonary disease, unspecified; E11.40 Type 2 diabetes mellitus with diabetic neuropathy, unspecified; I10 Essential (primary) hypertension; G89.4 Chronic pain syndrome; E78.2 Mixed hyperlipidemia; Z79.84 Long term (current) use of oral hypoglycemic drugs; Z79.899 Other long term (current) drug therapy; Z87.891 Personal history of nicotine dependence
CPT/HCPCS: 96374; 99283

== ENCOUNTER 2022-09-08 07:50 | Outpatient (CLI) | payer MEDICARE, BC, SELFPAY ==
[2022-09-08 08:19] VITALS: BP 132/69; PULSE 88; RESP 16; TEMP 36.6; O2SAT 100; BMI 27.3
[2022-09-08] MEDS: Benralizumab 30 MG/ML Syringe SC (08:46)
== END 2022-09-08 07:51 | disposition home or self-care (01) ==
PROVIDERS: PCP Student in an Organized Health Care Education/Training Program; Referring Provider Nurse Practitioner Acute Care; Visit Provider Nurse Practitioner Acute Care
DX: J45.50 Severe persistent asthma, uncomplicated (principal); I70.211 Atherosclerosis of native arteries of extremities with intermittent claudication, right leg; I77.1 Stricture of artery
CPT/HCPCS: 93922; 93926; 96372; J0517

== ENCOUNTER → 2022-09-08 | Outpatient (CLI) | payer MEDICARE, BC, SELFPAY ==
--- NOTE | 2022-09-08 09:34 | ART_ITS ---
Reason For Study: Stricture of Rt SFA / BPG Procedure A bilateral lower extremity continuous wave Doppler with analog waveform analysis and ankle brachial indexes. Left Segmental Pressures Left brachial= 133mmHg. Left posterior tibial artery = 140mmHg. Left dorsalis pedis artery = 153mmHg. Left digit = 107 mmHg. The left posterior tibial artery waveforms are triphasic. The left dorsalis pedis waveforms are triphasic. Right Segmental Pressures Right brachial= 146mmHg. Right posterior tibial artery = 108mmHg. Right dorsalis pedis artery = 95mmHg. Right digit = 59 mmHg. The right posterior tibial artery waveforms are biphasic. The right dorsalis pedis waveforms are biphasic. Indices The right ankle brachial index by the posterior tibial artery is 0.74. The right ankle brachial index by the dorsalis pedis is 0.65. The right digital-brachial index is 0.40. The left ankle brachial index by the posterior tibial artery is 0.96. The left ankle brachial index by the dorsalis pedis is 1.05. The left digital-brachial index is 0.73. VL/Ankle Brachial Index Interpretation Summary Right biphasic and JENNIFER 0.74. Left triphasic and 1.05. Ordering Physician: Jeffrey Tolentino Referring Physician: Woody Hurd Performed By: Panchito Puckett RVT
--- NOTE | 2022-09-08 09:35 | ADUL_ITS ---
Reason For Study: Stricture of Rt SFA / BPG Right Velocities Ext. Iliac Artery, dist = 77.0 cm./sec. Common Femoral Artery, mid = 96.1 cm./sec. 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 SFA is occluded from prox/mid, with a collateral branch providing flow to distal SFA. Prox thigh collateral branch = 60.0 cm/sec Mid thigh collateral branch = 46.8 cm/sec Supf Femoral Artery, prox. = 108.4 cm./sec. Profunda Femoral Artery = 46.8 cm./sec. Popliteal Artery, dist = 83.1 cm./sec. Post. Tibial Artery, prox = 23.2 cm./sec. Post. Tibial Artery, mid = 27.5 cm./sec. Post. Tibial Artery, dist = 22.5 cm./sec. Peroneal Artery, prox = 36.0 cm./sec. Peroneal Artery, mid = 28.2 cm./sec. Peroneal Artery,dist = 27.5 cm./sec. Ant. Tibial Artery, prox = 58.1 cm./sec. Ant. Tibial Artery, mid = 43.8 cm./sec. Ant. Tibial Artery, dist = 13.1 cm./sec. /US Art Duplex Unilat Lower Ext Interpretation Summary Right femoral with good collaterals filling tibials. Ordering Physician: Jeffrey Tolentino Referring Physician: Jeffrey Tolentino Performed By: Panchito Puckett, RVT
== END | disposition home or self-care (01) ==
PROVIDERS: PCP Student in an Organized Health Care Education/Training Program; Referring Provider Surgery Vascular Surgery; Visit Provider Surgery Vascular Surgery
DX: I70.211 Atherosclerosis of native arteries of extremities with intermittent claudication, right leg (principal); I77.1 Stricture of artery
CPT/HCPCS: 93922; 93926

== ENCOUNTER → 2022-10-09 | Outpatient (CLI) | payer MEDICARE, BC, SELFPAY ==
--- NOTE | 2022-10-09 17:33 | RAD_ITS ---
INDICATION: PAIN EXAMINATION/TECHNIQUE: X-RAY - XR Spine Thoracic 3 Views COMPARISON: FINDINGS: VERTEBRAE: Preserved vertebral body height. No fracture. No spondylolisthesis. Preservation of the normal thoracic kyphosis. No significant facet arthropathy. There is minimal dextroscoliosis. DISCS: Disc spaces are maintained. There is multilevel osteophyte formation. INCLUDED CHEST/ABDOMEN: No acute abnormalities. RAD/Thoracic Spine 3 Views IMPRESSION: Degenerative changes. Minimal dextroscoliosis. Electronically Signed: Rodriguez Carter, at 11:01 EDT ,
== END | disposition home or self-care (01) ==
LOC: RAD 17:01
PROVIDERS: PCP Student in an Organized Health Care Education/Training Program; Referring Provider Anesthesiology Pain Medicine; Visit Provider Anesthesiology Pain Medicine
DX: M51.36 Other intervertebral disc degeneration, lumbar region (principal)
CPT/HCPCS: 72072

== ENCOUNTER → 2022-10-13 | Outpatient (CLI) | payer MEDICARE, BC, SELFPAY ==
--- NOTE | 2022-10-13 15:36 | CT_ITS ---
We are attempting to reach an attending provider to discuss findings. An addendum with communication details will be sent when the communication is complete. EXAM: CT ANGIOGRAPHY ABDOMEN AND PELVIS WITH RUNOFF TO THE LOWER EXTREMITIES WITH INTRAVENOUS CONTRAST CLINICAL INDICATION: RLE rest pain, hx prior stenting, R fem-pop bypass TECHNIQUE: Helically acquired angiography images were obtained of the abdomen, pelvis and lower extremities with intravenous contrast using CTA runoff protocol. This CT exam was performed using one or more of the following dose reduction techniques: automated exposure control, adjustment of the mA and/or kV according to patient size, and/or use of iterative reconstruction technique. MIP reconstructed images were created and reviewed. CONTRAST: IV 100mL [id number] COMPARISON: No relevant prior studies available. FINDINGS: VASCULATURE: AORTA: There is a retroaortic left renal vein which is an anatomic variant. Normal caliber abdominal aorta. No occlusion or significant stenosis. No dissection. CELIAC TRUNK AND MESENTERIC ARTERIES: No acute findings. No occlusion or significant stenosis. No dissection. RENAL ARTERIES: No acute findings. No occlusion or significant stenosis. No dissection. RIGHT ILIAC ARTERIES: No acute findings. No occlusion or significant stenosis. No dissection. RIGHT FEMORAL/POPLITEAL ARTERIES: There is a right superficial femoral artery stent which is occluded. There also is a right femoropopliteal bypass which is occluded. There is contrast seen in the right popliteal artery due to collateral vessels from the deep femoral artery. There is three-vessel runoff to the right ankle. RIGHT CALF/FOOT ARTERIES: No acute findings. No occlusion or significant stenosis. LEFT ILIAC ARTERIES: No acute findings. No occlusion or significant stenosis. No dissection. LEFT FEMORAL/POPLITEAL ARTERIES: No acute findings. No occlusion or significant stenosis. No dissection. LEFT CALF/FOOT ARTERIES: No acute findings. No occlusion or significant stenosis. LOWER THORAX: Unremarkable. Lung bases are clear. No cardiomegaly. No significant pericardial effusion. ABDOMEN: LIVER: Unremarkable. Homogeneous. No focal mass. GALLBLADDER AND BILE DUCTS: Unremarkable. No calcified gallstones. No gallbladder distention or wall edema. No intra- or extrahepatic biliary ductal dilation. PANCREAS: Unremarkable. No focal cystic or solid mass. SPLEEN: Unremarkable. Normal size without focal cystic or solid mass. ADRENALS: Unremarkable. No nodules. KIDNEYS AND URETERS: See above. STOMACH AND BOWEL: Unremarkable. No stomach or bowel distention. No focal inflammatory change. PELVIS: APPENDIX: No evidence of acute appendicitis. BLADDER: Unremarkable. REPRODUCTIVE: Unremarkable as visualized. No mass. ABDOMEN, PELVIS and LOWER EXTREMITIES: INTRAPERITONEAL SPACE: Unremarkable. No ascites or other fluid collection. No free air. BONES/JOINTS: Unremarkable. No suspicious lytic or blastic abnormality. SOFT TISSUES: Unremarkable. No discrete abdominal or pelvic wall hernia. LYMPH NODES: Unremarkable. No enlarged lymph nodes. CT/CTA Abd w/Runoff W/WO Contrast IMPRESSION: Occlusion of a right superficial femoral artery stent as well as occlusion of a right femoral popliteal bypass. There is contrast seen within the right popliteal artery due to collateral flow. There is three-vessel runoff into the right ankle. Electronically Signed: See Ray MD at 0:01 EDT ,
[2022-10-19 15:31] LABS: CREATININE FINGERSTICK 0.85 mg/dL (0.55-1.02); EGFR FINGERSTICK > 60 mL/min (>60)
== END | disposition home or self-care (01) ==
LOC: CT 15:23
PROVIDERS: PCP Student in an Organized Health Care Education/Training Program; Referring Provider Physician Assistant; Visit Provider Physician Assistant
DX: I70.221 Atherosclerosis of native arteries of extremities with rest pain, right leg (principal)
CPT/HCPCS: 75635; Q9967

== ENCOUNTER → 2022-10-20 | Outpatient (CLI) | payer MEDICARE, BC, SELFPAY ==
--- NOTE | 2022-10-20 16:50 | STRESSREP ---
Stress Test Report Pharmacologic myocardial perfusion stress test. 67-year-old lady with a history of chest pain Resting EKG demonstrates sinus rhythm with a rate of 80 bpm. Resting blood pressure is 128/70 mmHg. 0.4 mg of regadenoson was infused per usual protocol followed by rapid intravenous saline flush injection. Continuous EKG monitoring was performed. The maximum heart rate was 108 bpm which was 69% of max impacted heart rate the maximum workload was 1 metabolic equivalent. At rest there were no ST or T wave changes noted to suggest ischemia and at peak infusion nonspecific ST changes were noted which did not meet the criteria for ischemia. No clinical angina is noted. The final blood pressure was 122/70 mmHg. Myocardial perfusion protocol. 11.8 mCi of technetium 99m sestamibi was injected at rest. 0.4 mg of regadenoson was infused per usual protocol. At peak infusion 36 mCi of technetium 99m sestamibi was injected stress images were obtained stress and rest images were reconstructed and compared in the short axis vertical long and horizontal long axis. Gated images were also obtained. Perfusion SPECT analysis: Review of the stress images demonstrate normal uptake of tracer noted in all areas of the myocardium. The resting images similar demonstrated normal uptake of tracer noted in all areas of the myocardium. No areas of reversibility are noted to suggest ischemia and no previous infarct is noted. Gated SPECT analysis: The gated ejection fraction is 61%. Conclusion: Normal pharmacologic myocardial perfusion stress test. Preserved ejection fraction.
== END | disposition home or self-care (01) ==
LOC: CVS 06:01
PROVIDERS: PCP Student in an Organized Health Care Education/Training Program; Referring Provider Physician Assistant Medical; Visit Provider Physician Assistant Medical
DX: R07.9 Chest pain, unspecified (principal)
CPT/HCPCS: 78452; 93017; A9500; A4216; J2785

== ENCOUNTER 2022-10-26 07:46 | Outpatient (CLI) | payer MEDICARE, BC, SELFPAY ==
--- NOTE | 2022-10-26 07:48 | VDUE_ITS ---
Reason For Study: pre op mapping Right Arm Left Arm Right cephalic vein is compressible. Left cephalic vein is compressible. Cephalic V shoulder .24 x .28 cm. Cephalic V shoulder .14 x .17 cm. Cephalic V mid bicep .15 x .15 cm. Cephalic V mid bicep .1 x .11 cm. Cephalic V above antecubital .23 x .25 cm Cephalic V above antecubital .06 x .08 cm Cephalic V below antecubital .31 x .35 cm. Cephalic V below antecubital .18 x .21 cm. Cephalic V mid forearm .14 x .14 cm. Cephalic V mid forearm .1 x .12 cm. Cephalic V wrist .05 x .08 cm. Cephalic V wrist .12 x .15 cm. Right basilic vein is compressible. Left basilic vein is compressible. Basilc V mid bicep .34 x .34 cm. Basilc V mid bicep .38 x .4 cm. Basilc V above antecubital .29 x .31 cm. Basilc V above antecubital .28 x .31 cm. Basilic V below antecubital .18 x .2 cm Basilic V below antecubital .08 x .11 cm Basilic V mid forearm .15 x .17 cm. Basilic V mid forearm .1 x .12 cm. Basilic V wrist .18 x .18 cm. Basilic V wrist .07 x .08 cm. VL/Dialysis Vein Map PRE-OP BILAT Interpretation Summary Right cephalic and basilic veins patent with measurements above. Left cephalic and basilic veins patent with measurements above Ordering Physician: Dar Machado Referring Physician: Dar Machado Performed By: Manolo Avilez RVT ???
--- NOTE | 2022-10-26 07:48 | VDLE_ITS ---
Reason For Study: pre op mapping RIGHT LEFT GSV prox thigh, .21 x .19 cm. GSV prox thigh, .26 x .27 cm. GSV mid thigh, .09 x .1 cm. GSV mid thigh, .13 x .13 cm. GSV dist thigh, .16 x .16 cm. GSV dist thigh, .18 x .2 cm. GSV knee, .16 x .17 cm. GSV knee, .15 x .17 cm. GSV prox calf, .2 x .24 cm. GSV prox calf, .11 x .12 cm. GSV mid calf, .14 x .16 cm. GSV mid calf, .1 x .1 cm. GSV distal calf, .17 x .19 cm. GSV distal calf, .08 x .08 cm. GSV below the knee is tortuous with multiple SSV prox, .15 x .2 cm. branches. SSV mid, .18 x .21 cm. SSV distal, .26 x .28 cm. SSV is harvested. Procedure Exam performed in department. The exam was diagnostic. VL/Saphenous Vein Mapping, Bilat Interpretation Summary Right great saphenous vein patent with measurements above Left great saphenous vein patent with measurements above Ordering Physician: Dar Machado Referring Physician: Dar Machado Performed By: Manolo Avilez, RVT
== END 2022-10-26 23:59 | disposition home or self-care (01) ==
LOC: CVS 07:47
PROVIDERS: PCP Student in an Organized Health Care Education/Training Program; Referring Provider Surgery Trauma Surgery; Visit Provider Surgery Trauma Surgery
DX: I70.221 Atherosclerosis of native arteries of extremities with rest pain, right leg (principal); R07.9 Chest pain, unspecified
CPT/HCPCS: 93970; 93985

== ENCOUNTER 2022-11-03 08:19 | Outpatient (CLI) | payer MEDICARE, BC, SELFPAY ==
[2022-11-03 08:25] VITALS: BP 113/66; PULSE 85; RESP 14; TEMP 35.8; O2SAT 96; BMI 27.3
[2022-11-03] MEDS: Benralizumab 30 MG/ML Syringe SC (08:29)
== END 2022-11-03 08:20 | disposition home or self-care (01) ==
LOC: MEDOUTP 08:19
PROVIDERS: PCP Student in an Organized Health Care Education/Training Program; Referring Provider Nurse Practitioner Acute Care; Visit Provider Nurse Practitioner Acute Care
DX: J45.50 Severe persistent asthma, uncomplicated (principal)
CPT/HCPCS: 96372; J0517

== ENCOUNTER 2022-11-22 11:22 | Day surgery (SDC) | payer MEDICARE, BC, SELFPAY ==
[2022-11-21 07:52] VITALS: BMI 28.7
[2022-11-22] VITALS (11 sets, daily range): BP systolic 106–127; BP diastolic 61–99; PULSE 91–102; RESP 14–22; TEMP 36.3–36.9; O2SAT 92–99; BMI 28.7
[2022-11-22 11:49] LABS: Hematocrit 43.4 % (37-47); Hemoglobin 13.9 g/dL (12.0-15.0); Mean Corpuscular Hgb 27.7 pg (27.0-32.0); Mean Corpuscular Volume 86.5 fL (81-99); Mean Platelet Vol. 10.4 fl (6.2-12.0); Platelet Count 321 K/mm3 (150-450); RBC Distribution Width CV 14.5 % (11.6-14.6); RBC Distribution Width SD 45.6 fl (35.1-43.9); Red Blood Count 5.02 M/mm3 (4.2-5.4); White Blood Count 11.1 K/mm3 (4.4-11.0)
[2022-11-22 11:59] LABS: Anion Gap 7 (5-15); BUN 17 mg/dL (7-18); BUN/Creat Ratio 23.3 RATIO (10-20); Calcium,Total 8.9 mg/dL (8.5-10.1); Chloride 100 mmol/L (98-107); Creatinine, Serum 0.73 mg/dL (0.55-1.02); EST Glomerular Filtration Rate 85 mL/min (>60); Est Glom Filt Rate - Afr Amer 103 mL/min (>60); Estimated Creatinine Clearance 55.19 ml/min; Glucose 128 mg/dL (74-106); Potassium 3.5 mmol/L (3.5-5.1); Sodium Level 134 mmol/L (136-145)
--- NOTE | 2022-11-22 12:31 | HP.PCM_ITS ---
HPI - General HPI Narrative ARIEL DURHAM, is a 67 F who presents with right foot pain at rest, paresthesias improved with dangling over bed. Has had prior right SFA stenting which is now occluded. Also had right fem-pop later revised with jump graft to AT. This is also now occluded. Her vein mapping reveals inadequate conduit both upper and lower extremity. She had a CTA that confirmed sfa/pop occlusion with tibial reconstitution but unable to determine if vessels in continuity to foot. She is here for angiogram to determine status of tibial vessels with plan for possible cadaver bypass vs pedal access attempt at intervention at a later date. If disease isn't reconstructible will refer to for [facility] consideration. [facility] Medical History ADD (attention deficit disorder) Anxiety Arthritis Bowel disease Bronchitis Buerger's disease Chronic pain syndrome COPD (chronic obstructive pulmonary disease) Depression Diarrhea Essential hypertension Foot drop Gastric ulcer GERD (gastroesophageal reflux disease) Hemorrhoids Hoarseness of voice HTN (hypertension) Hyponatremia LBBB (left bundle branch block) Lumbago Major depressive disorder in remission Migraine with aura Mixed hyperlipidemia Neuropathy Other acquired deformity of toe Precordial pain Psychophysiologic insomnia PVD (peripheral vascular disease) RLS (restless legs syndrome) Sinus tachycardia TIA (transient ischemic attack) TOS (thoracic outlet syndrome) Type 2 diabetes mellitus Home Medications cyclobenzaprine 5 mg tablet 10 mg PO QHS 09/25/19 [History Last Taken Unknown] divalproex 500 mg tablet,extended release 24 hr 500 mg PO DAILY 09/25/19 [History Last Taken Unknown] bupropion HCl 300 mg 24 hr tablet, extended release (Wellbutrin XL) 300 mg PO QAM 09/08/20 [History Last Taken Unknown] empagliflozin 25 mg tablet 25 mg PO DAILY 12/01/20 [History Last Taken Unknown] montelukast 10 mg tablet 10 mg PO DAILY 12/01/20 [History Last Taken Unknown] citalopram 10 mg tablet 20 mg PO DAILY 06/01/21 [History Last Taken Unknown] glimepiride 4 mg tablet 2 mg PO DAILY 06/01/21 [History Last Taken Unknown] hydroxyzine HCl 25 mg tablet 25 mg PO TID PRN Hypertension 06/01/21 [History Last Taken Unknown] atorvastatin 40 mg tablet 40 mg PO QHS 11/25/21 [History Last Taken Unknown] cilostazol 50 mg tablet 50 mg PO 11/25/21 [History Last Taken Unknown] esomeprazole magnesium 40 mg capsule,delayed release 40 mg PO DAILY 11/25/21 [History Last Taken 11/22/22] loratadine 10 mg tablet 10 mg PO DAILY 11/25/21 [History Last Taken 11/22/22] sumatriptan succinate 100 mg tablet 100 mg PO .COMPLEX 11/25/21 [History Last Taken Unknown] losartan 25 mg tablet 25 mg PO DAILY #90 tabs 01/17/22 [Rx Last Taken Unknown] metoprolol succinate 100 mg tablet,extended release 24 hr 100 mg PO DAILY #90 tabs 01/17/22 [Rx Last Taken Unknown] benralizumab 30 mg/mL subcutaneous syringe (Fasenra) 30 mg subcut Q8W 3 doses #1 mL 05/16/22 [Rx Last Taken Unknown] albuterol sulfate 90 mcg/actuation aerosol inhaler 1 - 2 puff inhalation Q6H PRN PRN Wheezing #8.5 grams 07/10/22 [Rx Last Taken Unknown] budesonide 160 mcg-glycopyr 9 mcg-formot 4.8 mcg/actuation HFA inhaler (Breztri Aerosphere) 2 inh inhalation QAM AND QPM #10.7 grams 08/08/22 [Rx Last Taken Unknown] guaifenesin 1,200 mg tablet, extended release 12 hr 1,200 mg PO Q12H #60 tabs 09/13/22 [Rx Last Taken Unknown] tapentadol 50 mg tablet (Nucynta) 50 mg PO BID 10/03/22 [History Last Taken Unknown] rivaroxaban 2.5 mg tablet (Xarelto) 2.5 mg PO BID #60 tabs 10/04/22 [Rx Last Taken 11/19/22] amoxicillin 875 mg-potassium clavulanate 125 mg tablet 1 tab PO BID #10 tabs 10/10/22 [Rx Last Taken Unknown] prednisone 10 mg tablet 10 mg PO QDAY #30 tabs 10/10/22 [Rx Last Taken Unknown] Allergy/AdvReac Type Severity Reaction Status Date / Time bacitracin Allergy Severe Swelling Verified 11/03/22 08:27 [From Neosporin ([id number])] adhesive tape Allergy Rash Verified 11/03/22 08:27 latex Allergy Rash Verified 11/03/22 08:27 morphine Allergy Rash Verified 11/03/22 08:27 Family History Father Cancer throat; lung; prostate Heart disease CVA (cerebral vascular accident) Hypercholesterolemia Grandmother Heart disease Son Diabetes Type 1 Brother Diabetes Type 1 Heart disease Myocardial infarction, Onset Age: 60 Sister Cardiac murmur Heart aneurysm Surgical History H/O tubal ligation H/O vaginal hysterectomy History of appendectomy History of arterial bypass of lower extremity Hx laparoscopic cholecystectomy Social History Smoking Status: Former smoker how long ago did patient quit smokin second hand exposure: Yes alcohol intake: current alcohol intake frequency: holidays/special occasions only substance use type: does not use caffeine: Yes Type: carbonated beverages Number of servings: 1 and tea Number of servings: 1 ROS Constitutional Constitutional: Denies chills, fever(s), frequent falls, lethargy or weakness Eyes Eyes: Denies blind spots, change in vision or loss of vision ENT HEENT: Denies bleeding gums, hoarseness or sore throat Cardiovascular Cardiovascular: Reports numbness in extremities; Denies abdominal pain, bluish discoloration of hand/feet, chest pain with activity, claudication, cold extremi ties, cyanosis, dyspnea on exertion, erythema on extremities, irregular heart rhythm, leg edema, leg ulcers or weakness in extremities Respiratory/Chest Respiratory/Chest: Denies cough, excessive phlegm production, shortness of breath at rest, shortness of breath with exertion or wheezing Gastrointestinal Gastrointestinal: Denies anorexia, change in stool character, constipation, diarrhea, melena or rectal bleeding Genitourinary Genitourinary: Denies dysuria or hematuria Musculoskeletal Musculoskeletal: Denies abnormal gait Integumentary Integumentary: Reports other Details: ; Denies erythema, non-healing lesions or wounds Neurologic Neurologic: Denies abnormal speech, focal weakness, headache(s), loss of vision, numbness, paresthesias or sensory deficit Hematologic/Lymphatic Hematologic/Lymphatic: Denies easy bleeding, easy bruising or lymphadenopathy Vital Signs Vital Signs Vital Signs: Weight Weight: 147 lb Body Mass Index (BMI) 28.7 Physical Exam Const alert, oriented x3, no apparent distress and healthy appearing General Appearance: cooperative; Negative for combative or lethargic Orientation / Consciousness: awake Exam Limitations: no limitations HEENT Head and Scalp: normocephalic and atraumatic Eyes EOMs intact bilaterally General Eye: normal appearance of both eyes Neck full ROM General: trachea midline Resp normal respiratory effort and no use of accessory muscles Effort and Inspection: Negative for labored, stridor or audible wheezes Cardio regular rate and regular rhythm Peripheral Pulses: femoral pulses present Back/Spine Cervical Spine: cervical ROM normal Extremity full ROM, normal capillary refill and no clubbing, cyanosis or edema Skin no rashes or lesions noted and no wounds Neuro oriented x3, CN's II-XII intact bilaterally, no focal motor deficits and no sensory deficits noted Psych thought process normal, cooperative, affect normal, speech normal and activity/motor behavior normal Results Lab / Micro Data 11/22/22 11:35 11/22/22 11:35 Labs: Laboratory Results - last 24 hr 11/22/22 11:35: WBC 11.1 H, RBC 5.02, Hgb 13.9, Hct 43.4, MCV 86.5, MCH 27.7, MCHC 32.0, RDW Std Deviation 45.6 H, RDW Coeff of Dinesh 14.5, Plt Count 321, MPV 10.4, Sodium 134 L, Potassium 3.5, Chloride 100, Carbon Dioxide 27.0, Anion Gap 7, BUN 17, Creatinine 0.73, Estim Creat Clear Calc 55.19, Est GFR (MDRD) Af Amer 103, Est GFR (MDRD) Non-Af 85, BUN/Creatinine Ratio 23.3 H, Glucose 128 H, Calcium 8.9 Assessment & Plan Assessment/Plan (1) Atherosclerosis of right lower extremity with rest pain: QUALIFIERS: Peripheral atherosclerosis artery type: [place] artery Qualified Code(s): I70.221 - Atherosclerosis of [place] arteries of extremities with rest pain, right leg PLAN: -angiogram for surgical planning
--- NOTE | 2022-11-22 14:01 | OP.PCM_ITS ---
Report of Operation Date of Procedure: 11/22/22 Pre-Operative Diagnosis: atherosclerosis with rest pain, right lower extremity Post-Operative Diagnosis: same Surgery/Procedure Performed:: aortogram, right lower extremity runoff Surgeon: Dar Machado Type of Anesthesia: Local and Sedation,Conscious Estimated Blood Loss (mL): 4 Description of Procedure: HPI: Patient is a 67-year-old female with atherosclerosis and rest pain of right lower extremity with multiple revascularizations in the past including SFA popliteal stenting, right femoral-popliteal bypass with subsequent jump bypass revision to the AT all of which were occluded. She is got right foot paresthesias and rest pain particularly nocturnal rest pain that improves with dangling her foot over the bed. She had a CT scan which revealed patent minimally diseased aortoiliac common femoral vessels with a flush occlusion of the SFA popliteal and there was poor visualization of the tibial vessels. She is taken now for angiogram for planning for possible intervention either with bypass or complex endovascular intervention with pedal access. Description of procedure: Upon obtaining informed consent and verification correct patient procedure site patient taken to the Anesthesiology Physician where she was positioned prepped and draped in usual sterile fashion. Timeout was then performed and conscious sedation administered with Versed and fentanyl. Skin overlying the left common femoral artery was anesthetized with 1% lidocaine and the vessel accessed in retrograde fashion with a micropuncture needle wire. T his was then exchanged for micropuncture sheath however we are unable to advance the sheath through the vessel wall. There is minimal visualized plaque on the ultrasound and magnified view of fluoroscopy showed that there appeared to be a pair of StarClose closure devices at the point of access and that we must have been into close proximity to these so the wire and catheter withdrawn and manual pressure held we then anesthetized more inferiorly and accessed the vessel just above the bifurcation with less resistance. In the second attempt the micropuncture sheath passed without resistance and the J-wire was advanced the micropuncture changed for short 5 Sammarinese sheath. Through the 5 Sammarinese sheath we performed a iliofemoral angiogram which revealed satisfactory placement no extravasation or dissection. Through the 5 Sammarinese sheath the Bentson wire and Omni Flush catheter advanced into the abdominal aorta and digital traction aortogram pelvic angiogram was performed. We then used the Omni Flush and Bentson wire to navigate into the contralateral iliac system advancing our catheter into the right common femoral artery. From this position we performed sequential subtraction angiography of the right lower extremity in multiple views and obliquities. Once satisfactory imaging was obtained the Bentson wire was then readvanced and then the wire and catheter withdrawn. A 5 Sammarinese minx was then deployed followed by 2 minutes of manual pressure with satisfactory stasis noted. Patient was then taken to the PCU for bedrest prior to discharge to home. Radiographic interpretation: Abdominal aorta normal caliber with no significant atherosclerosis or stenosis. Left common iliac artery patent with no atherosclerosis or stenosis, left internal iliac artery patent with no atherosclerosis or stenosis, left external iliac artery patent with no atherosclerosis or stenosis. Left common femoral artery patent with no significant atherosclerosis or stenosis. Right common iliac artery patent with no atherosclerosis or stenosis, right internal iliac artery patent with no atherosclerosis or stenosis, right external iliac artery patent with no atherosclerosis or stenosis. Right common femoral artery patent no atherosclerosis or stenosis in the large caliber profunda with no atherosclerosis or stenosis proximally however on the distal branches there were irregularities consistent with Buerger's disease. The SFA had a flush occlusion that extended throughout with ultimate short segment reconstitution of a diseased appearing below the knee popliteal artery. There was more distal short segment occlusion as well as occlusion of the anterior tibial origin with reconstitution of the anterior tibial approximately 4 cm distal with a fairly normal caliber AT patent to the ankle where it terminated in a lateral foot branch with no direct filling of the DP. There was filling of the DP from collateral branches distally in the foot. The tibioperoneal trunk with small caliber but patent, the peroneal artery is patent with no significant atherosclerosis or stenosis in small caliber throughout the lower leg and it provides collaterals at the ankle to reconstitute the PT. The PT is occluded from just beyond its origin until with reconstitution at the ankle and this provides the only filling of the pedal arch. There was no visualization of branches off of the pedal arch nor any digit vessels.
== END 2022-11-22 17:54 | disposition home or self-care (01) ==
LOC: CLSP 11:25 → PCU 14:10
PROVIDERS: PCP Student in an Organized Health Care Education/Training Program; Referring Provider Surgery Trauma Surgery; Visit Provider Surgery Trauma Surgery
DX: I70.221 Atherosclerosis of native arteries of extremities with rest pain, right leg (principal); J44.9 Chronic obstructive pulmonary disease, unspecified; E11.40 Type 2 diabetes mellitus with diabetic neuropathy, unspecified; I10 Essential (primary) hypertension; F90.0 Attention-deficit hyperactivity disorder, predominantly inattentive type; Z87.891 Personal history of nicotine dependence; E78.2 Mixed hyperlipidemia; M79.671 Pain in right foot; R20.2 Paresthesia of skin
CPT/HCPCS: 36200; 36245; 36415; 75625; 75710; 76937; 80048; 85027; 99152; 99153; C1760; C1769; J7040

== ENCOUNTER 2022-12-28 06:46 | Day surgery (SDC) | payer MEDICARE, BC, SELFPAY ==
[2022-12-26 09:26] VITALS: BMI 28.7
[2022-12-28 07:08] LABS: Hemoglobin 14.4 g/dL (12.0-15.0); Mean Corp Hgb Conc 32.7 g/dL (32-36); Mean Corpuscular Hgb 28.2 pg (27.0-32.0); Mean Corpuscular Volume 86.1 fL (81-99); Mean Platelet Vol. 10.2 fl (6.2-12.0); Platelet Count 294 K/mm3 (150-450); RBC Distribution Width CV 14.7 % (11.6-14.6); Red Blood Count 5.11 M/mm3 (4.2-5.4); White Blood Count 7.6 K/mm3 (4.4-11.0)
[2022-12-28 07:19] LABS: Anion Gap 6 (5-15); BUN 16 mg/dL (7-18); BUN/Creat Ratio 18.4 RATIO (10-20); Calcium,Total 8.9 mg/dL (8.5-10.1); Chloride 101 mmol/L (98-107); Creatinine, Serum 0.87 mg/dL (0.55-1.02); EST Glomerular Filtration Rate 69 mL/min (>60); Est Glom Filt Rate - Afr Amer 84 mL/min (>60); Estimated Creatinine Clearance 46.31 ml/min; Glucose 147 mg/dL (74-106); Potassium 3.8 mmol/L (3.5-5.1); Sodium Level 136 mmol/L (136-145)
--- NOTE | 2022-12-28 11:00 | PCM.OPRPT ---
Report of Operation Date of Procedure: 12/28/22 Pre-Operative Diagnosis: atherosclerosis with rest pain, right lower extremity Post-Operative Diagnosis: same Surgery/Procedure Performed:: right lower extremity angiogram Surgeon: Dar Machado Type of Anesthesia: Local and Sedation,Conscious Estimated Blood Loss (mL): 2 Description of Procedure: HPI: Patient is a 67-year-old female with significant history of atherosclerosis with multiple prior interventions both endovascular and open. She has multilevel disease of the right lower extremity with rest pain and previous diagnostic angiogram revealed flush occlusion of the SFA with small caliber poorly defined tibials. She is taken now for angiography with retrograde pedal tibial access in an effort to cross the occlusion and treat retrograde. Description of procedure: Upon obtaining informed consent and verification correct patient procedure site patient in the Operations Vocational Instructor where she was positioned prepped and draped in usual sterile fashion. Time was performed conscious sedation ministered with Versed and fentanyl. Ultrasound was used to evaluate the dorsalis pedis and traced back to the anterior tibial artery as well as the posterior tibial at the malleolus and the peroneal. The posterior tibial artery was small, did not demonstrate flow, and highly diseased. The peroneal artery in the distal lower leg was of reasonable caliber though did have significant atherosclerosis. The dorsalis pedis was very small in caliber and did not appear to be continuous with the anterior tibial and the anterior tibial artery at the distal aspect of the lower leg did appear to be a reasonable access candidate though was small in caliber. Skin overlying the peroneal artery was anesthetized and the vessel accessed in retrograde fashion with a micropuncture needle wire. There was some resistance when advancing the micropuncture wire consistent with highly diseased and calcified plaque filled vessels. This was then exchanged out for the micropuncture dilator and the wire withdrawn. There was what appeared to be arterial backbleeding so a hand-injection angiography was performed this opacified both the peroneal artery as well as the peroneal veins and adjacent vasa vasorum of the artery. Is uncertain if we had entered and then exited the artery and vein or how exactly the catheter tip was positioned so a command 18 wire was advanced and the micropuncture exchanged for a quick cross catheter which was advanced into the proximal lower leg. From this position repeat angiography was performed which confirmed that we were within the lumen of the venous system and no opacification of the arterial system was visualized. We then withdrew the catheter and held manual pressure. Further evaluation of the peroneal artery demonstrated no better site for access so we then turned our attention to the anterior tibial artery. Skin overlying the vessel was anesthetized 1% lidocaine the vessel accessed in retrograde fashion with a microneedle wire and ultrasound guidance. Again we got arterial appearing backbleeding through the needle so the wire was advanced and the micropuncture exchanged for the dilator of the micropuncture sheath. This again confirmed position within the venous system with no filling of the arterial system. The artery while pulsatile was also very easily compressed and hugging the bone of the tibia which made entry very difficult. Multiple subsequent efforts were undertaken with no success entering into the artery despite fair visualization of the needle engaging the artery wall. As we worked more cephalad the vessel became deeper and was actually involved in scar tissue of the prior bypass efforts so visualization became more difficult. In a final effort we anesthetized over the dorsalis pedis with 1% lidocaine and accessed in retrograde fashion. We are able to enter into the vein with a needle over the wire would not advance much beyond the tip of the needle which further seem to reinforce that the dorsalis pedis did not have direct continuity with the anterior tibial. At this point manual pressure was held and efforts were ceased. Dry sterile dressings were placed and the patient was awakened her sedation taken recovery anticipated discharged home.
== END 2022-12-28 11:50 | disposition home or self-care (01) ==
LOC: CLSP 06:50
PROVIDERS: PCP Student in an Organized Health Care Education/Training Program; Referring Provider Surgery Trauma Surgery; Visit Provider Surgery Trauma Surgery
DX: I70.221 Atherosclerosis of native arteries of extremities with rest pain, right leg (principal); J44.9 Chronic obstructive pulmonary disease, unspecified; E11.9 Type 2 diabetes mellitus without complications; I10 Essential (primary) hypertension; E78.2 Mixed hyperlipidemia
CPT/HCPCS: 36245; 36415; 75710; 76937; 80048; 85027; 86850; 86900; 86901; 99152; 99153; C1769; J7040; C1887; C1894

== ENCOUNTER 2023-01-05 09:37 | Outpatient (CLI) | payer MEDICARE, BC, SELFPAY ==
[2023-01-05 09:51] VITALS: BP 127/68; PULSE 64; RESP 18; TEMP 36; O2SAT 98; BMI 28.7
[2023-01-05] MEDS: Benralizumab 30 MG/ML Syringe SC (09:54)
== END 2023-01-05 09:38 | disposition home or self-care (01) ==
LOC: MEDOUTP 09:37
PROVIDERS: PCP Student in an Organized Health Care Education/Training Program; Referring Provider Nurse Practitioner Acute Care; Visit Provider Nurse Practitioner Acute Care
DX: I70.221 Atherosclerosis of native arteries of extremities with rest pain, right leg (principal)
CPT/HCPCS: 96372; J0517

== ENCOUNTER → 2023-01-29 | Outpatient (CLI) | payer MEDICARE, BC, SELFPAY ==
--- NOTE | 2023-01-29 08:53 | ART_ITS ---
Reason For Study: History TOS s/p bilateral rib resection with new symptoms Procedure A bilateral upper extremity continuous wave Doppler with analog waveform analysis and segmental pressures. Performed with Thoracic Outlet Syndrome protocol. Left Segmental Pressures Left brachial= 125mmHg. Left ulnar= 150mmHg. Left radial= 154mmHg. Left digit = 132 mmHg. The left radial waveforms are triphasic. The left ulnar waveforms are triphasic. Right Segmental Pressures Right brachial= 140mmHg. Right ulnar= 142mmHg. Right radial= 158mmHg. Right digit = 133 mmHg. The right radial waveforms are triphasic. The right ulnar waveforms are triphasic. Indices The right wrist-brachial index by the ulnar artery is 1.01. The right wrist-brachial index by the radial artery is 1.13. The right digital-brachial index is 0.95. The left wrist-brachial index by the ulnar artery is 1.07. The leftt wrist-brachial index by the radial artery is 1.10. The left digital-brachial index is 0.94. VL/Upper Extremity Arterial Study Interpretation Summary Right wrist-brachial index 1.13, normal. Doppler and PVR waveforms normal at re st. No change in right upper extremity waveforms with position changes, no indicati on of arterial thoracic outlet. Left wrist-brachial index 1.1, normal. Doppler and PVR waveforms normal at rest . No change in left upper extremity waveforms with position changes, no indicatio n of arterial thoracic outlet. Ordering Physician: Nisreen Valdes Referring Physician: Woody Hurd Performed By: Muriel Wu RVT
== END | disposition home or self-care (01) ==
LOC: CVS 08:53
PROVIDERS: PCP Student in an Organized Health Care Education/Training Program; Referring Provider Physician Assistant; Visit Provider Physician Assistant
DX: G54.0 Brachial plexus disorders (principal); I73.9 Peripheral vascular disease, unspecified
CPT/HCPCS: 93923

== ENCOUNTER → 2023-02-28 | Outpatient (CLI) | payer MEDICARE, BC, SELFPAY | END | disposition home or self-care (01) | LOC: PSN 08:06 | PROVIDERS: PCP Student in an Organized Health Care Education/Training Program; Referring Provider Nurse Practitioner Acute Care; Visit Provider Nurse Practitioner Acute Care | DX: J06.9 Acute upper respiratory infection, unspecified (principal) | CPT/HCPCS: 87804; 87807 ==

== ENCOUNTER 2023-03-02 08:48 | Outpatient (CLI) | payer MEDICARE, BC, SELFPAY ==
[2023-03-02 09:17] VITALS: BP 134/77; PULSE 78; RESP 16; TEMP 35.9; O2SAT 99; BMI 28.5
[2023-03-02] MEDS: Benralizumab 30 MG/ML Syringe SC (09:21)
== END 2023-03-02 08:49 | disposition home or self-care (01) ==
LOC: MEDOUTP 08:48
PROVIDERS: PCP Student in an Organized Health Care Education/Training Program; Referring Provider Nurse Practitioner Acute Care; Visit Provider Nurse Practitioner Acute Care
DX: J45.50 Severe persistent asthma, uncomplicated (principal)
CPT/HCPCS: 96372; J0517

== ENCOUNTER → 2023-03-21 | Outpatient (CLI) | payer MEDICARE, BC, SELFPAY | END | disposition home or self-care (01) | LOC: PSN 10:50 | PROVIDERS: PCP Student in an Organized Health Care Education/Training Program; Referring Provider Nurse Practitioner Acute Care; Visit Provider Nurse Practitioner Acute Care | DX: J44.9 Chronic obstructive pulmonary disease, unspecified (principal) | CPT/HCPCS: 87070; 87205; 87635 ==

== ENCOUNTER → 2023-05-10 | Outpatient (CLI) | payer MEDICARE, BC, SELFPAY ==
[2023-05-10 10:20] LABS: Absolute Neutrophil Count 4.7 X10^3/uL (2.0-7.7); Basophil# 0.01 X10^3/uL; Basophil% 0.1 % (0-1); Hematocrit 44.1 % (37-47); Hemoglobin 14.1 g/dL (12.0-15.0); Lymphocyte % 25.5 % (19-41); Mean Corpuscular Hgb 27.8 pg (27.0-32.0); Mean Corpuscular Volume 86.8 fL (81-99); Mean Platelet Vol. 10.7 fl (6.2-12.0); Monocyte% 7.1 % (0-10); NRBC Flagged by Analyzer 0 % (0-5); Neutrophil # 4.71 X10^3/uL (2.7-7.7); Neutrophil % 66.7 % (47-70); Platelet Count 343 K/mm3 (150-450); RBC Distribution Width CV 15.5 % (11.6-14.6); RBC Distribution Width SD 48.9 fl (35.1-43.9); Red Blood Count 5.08 M/mm3 (4.2-5.4); White Blood Count 7.1 K/mm3 (4.4-11.0)
[2023-05-10 11:01] LABS: Anion Gap 6 (5-15); BUN 12 mg/dL (7-18); BUN/Creat Ratio 11.3 RATIO (10-20); Calcium,Total 9.4 mg/dL (8.5-10.1); Chloride 105 mmol/L (98-107); Creatinine, Serum 1.06 mg/dL (0.55-1.02); EST Glomerular Filtration Rate 55 mL/min (>60); Est Glom Filt Rate - Afr Amer 67 mL/min (>60); Glucose 167 mg/dL (74-106); Potassium 3.6 mmol/L (3.5-5.1); Sodium Level 140 mmol/L (136-145); Thyroid Stim Hormone (TSH) 1.12 uIU/mL (0.358-3.74)
[2023-05-12 15:07] LABS: Vitamin D 1,25-Dihydroxy 31.3 pg/mL (24.8-81.5)
== END | disposition home or self-care (01) ==
LOC: LAB 09:54
PROVIDERS: PCP Student in an Organized Health Care Education/Training Program; Referring Provider Nurse Practitioner Gerontology; Visit Provider Nurse Practitioner Gerontology
DX: R53.83 Other fatigue (principal); E55.9 Vitamin D deficiency, unspecified
CPT/HCPCS: 36415; 80048; 82652; 84443; 85025

== ENCOUNTER → 2023-05-16 | Outpatient (CLI) | payer MEDICARE, BC, SELFPAY ==
--- NOTE | 2023-05-16 11:50 | RAD_ITS ---
INDICATION: SHOULDER PAIN EXAMINATION/TECHNIQUE: X-RAY - LEFT XR Shoulder Min 2 Views COMPARISON: No previous relevant examinations for comparison. FINDINGS: SOFT TISSUES: No soft tissue swelling or gas. No radiopaque foreign body. BONES/JOINTS: 1. No acute fracture or subluxation.. Normal alignment. Preservation of the joint space.. No sclerotic or destructive changes observed. 2. There is normal glenohumeral motion. There is normal alignment of the acromioclavicular joint. 3. The clavicle, acromion, scapula and RIGHT rib cage have normal appearance. RAD/Shoulder min 2 Views IMPRESSION: 1. No fracture malalignment or focal bony or joint space abnormality involving the shoulder.. Electronically Signed: Arnold Kong MD at 22:11 EST ,
--- NOTE | 2023-05-16 11:50 | RAD_ITS ---
HISTORY: Other cervical disc degeneration, unspecified cervical region. TECHNIQUE: XR Spine Cervical 2 or 3 Views. COMPARISON: None. FINDINGS: VERTEBRAE: Vertebral body heights maintained. No acute fracture identified. ALIGNMENT: No significant anterior or posterior subluxation. Straightening of the cervical lordosis. INTERVERTEBRAL DISCS: Degenerative endplate changes with osteophytes of C4-5 and C5-6. Mild intervertebral disc space narrowing with anterior osteophytes of C6-7. SOFT TISSUES: No significant prevertebral soft tissue swelling. Hearing aids noted. Surgical clips in the left supraclavicular region. RAD/Cerv Spine 2 or 3 Views IMPRESSION: No acute fracture or dislocation identified in the cervical spine. Multilevel degenerative change. Electronically Signed: Mervat Lucas MD at 10:06 EST ,
== END | disposition home or self-care (01) ==
LOC: RAD 11:50
PROVIDERS: PCP Student in an Organized Health Care Education/Training Program; Referring Provider Anesthesiology Pain Medicine; Visit Provider Anesthesiology Pain Medicine
DX: M25.512 Pain in left shoulder (principal); M50.30 Other cervical disc degeneration, unspecified cervical region
CPT/HCPCS: 72040; 73030

== ENCOUNTER → 2023-09-19 | Outpatient (CLI) | payer MEDICARE, BC, SELFPAY ==
[2023-09-19 10:23] LABS: AST(SGOT) 10 U/L (15-37); Alanine Aminotransfer ALT/SGPT 23 U/L (13-56); Albumin, Serum 3.5 g/dL (3.2-5.0); Alkaline Phosphatase 73 U/L (45-117); Bilirubin, Direct 0.15 mg/dL (0.00-0.30); Cholesterol 134 mg/dL (200); Globulin 3.4 g/dL (2.2-4.2); High Density Lipoprotein 68 mg/dL; Protein, Total 6.9 g/dL (6.4-8.2); Triglycerides 92 mg/dL; Very Low Density Lipoprotein 18 mg/dL (5-40)
== END | disposition home or self-care (01) ==
LOC: LAB 09:10
PROVIDERS: PCP Student in an Organized Health Care Education/Training Program; Referring Provider Internal Medicine Cardiovascular Disease; Visit Provider Internal Medicine Cardiovascular Disease
DX: E78.2 Mixed hyperlipidemia (principal)
CPT/HCPCS: 36415; 80061; 80076

== ENCOUNTER → 2023-11-14 | Outpatient (CLI) | payer MEDICARE, BC, SELFPAY ==
--- NOTE | 2023-11-14 14:10 | NEURO ---
NCS and/or EMG Patient Report Ordering Doctor: Catarino Solares DATE OF SERVICE: 11/14/23 Elizabet presents with pain in the left arm and numbness in the left hand. She reports neck and shoulder pain. Electrodiagnostic findings: Left median motor nerve demonstrates normal distal latency, amplitude and conduction velocity. Left ulnar motor nerve demonstrates normal distal latency, amplitude and conduction velocity across the elbow. Borderline prolonged left median sensory latency. Normal left ulnar and radial sensory responses. Normal left median ulnar F?waves. Needle EMG testing was performed the left upper limb. 1+ fibrillations noted in the left triceps, left cervical paraspinals and left flexor carpi ulnaris. Motor unit action potentials are of normal amplitude and duration. Electrodiagnostic impression: This is an abnormal study in the left upper limb 1. Electrodiagnostic findings are suggestive of acute left C7 radiculopathy. Recommend clinical correlation with cervical spine imaging. 2. There is no electrodiagnostic evidence for peripheral neuropathy, including carpal tunnel or cubital tunnel syndrome. Multi Select Codes Neurology Neurology Interp Codes: 05480-83 Musc test done w/n test comp (interp) and 08327-96 Nrv cndj test 7-8 studies (interp)
== END | disposition home or self-care (01) ==
LOC: PSN 13:03
PROVIDERS: PCP Student in an Organized Health Care Education/Training Program; Referring Provider Orthopaedic Surgery Orthopaedic Surgery of the Spine; Visit Provider Orthopaedic Surgery Orthopaedic Surgery of the Spine
DX: G56.02 Carpal tunnel syndrome, left upper limb (principal)
CPT/HCPCS: 95886; 95910

== ENCOUNTER → 2023-11-22 | Outpatient (CLI) | payer MEDICARE, BC, SELFPAY ==
--- NOTE | 2023-11-22 08:15 | ART_ITS ---
Reason For Study: PVD Procedure A bilateral lower extremity continuous wave Doppler with analog waveform analysis,segmental pressures,and ankle brachial indexes without exercise. Pressures were not acquired above ankles due to occluded RT SFA & FAILED BYPASS. Left Segmental Pressures Left brachial= 126mmHg. Left posterior tibial artery = 124mmHg. Left dorsalis pedis artery = 122mmHg. Left digit = 100 mmHg. The left posterior tibial artery waveforms are triphasic. The left dorsalis pedis waveforms are triphasic. Right Segmental Pressures Right brachial= 122mmHg. Right posterior tibial artery = 78mmHg. Right dorsalis pedis artery = 78mmHg. Right digit = 61 mmHg. The right posterior tibial artery waveforms are monophasic. The right dorsalis pedis waveforms are biphasic. Indices The right resting ankle brachial index is 0.62. The right ankle brachial index by the posterior tibial artery is 0.62. The right ankle brachial index by the dorsalis pedis is 0.62. The right digital-brachial index is 0.48. The left resting ankle brachial index is 0.98. The left ankle brachial index by the posterior tibial artery is 0.98. The left ankle brachial index by the dorsalis pedis is 0.97. The left digital-brachial index is 0.79. VL/Lower Ext Art Exam w/o Exercis Interpretation Summary Right JENNIFER 0.62, moderate arterial insufficiency. Doppler/PVR waveforms reveal d istal SFA/popliteal disease. Left JENNIFER 0.98, mild arterial insufficiency. Doppler/PVR waveforms of the left l eg normal at rest. Ordering Physician: Nisreen Valdes Referring Physician: Woody Hurd Performed By: Joleen Emery RVT, RDCS
--- NOTE | 2023-11-22 09:10 | MRI_ITS ---
STUDY: MRI CERVICAL SPINE WITHOUT CONTRAST REASON FOR EXAM: Female, 68 years old. Pain -- Prior thoracic outlet surgery c/o neck pain radiating into L arm TECHNIQUE: Standardized fat and water weighted pulse sequences were obtained in the sagittal and axial planes. COMPARISON: Cervical spine radiographic study May 16, 2023 FINDINGS: Normal foramen magnum and brainstem-cervical cord junction. Normal craniovertebral junction. Normal anterior atlantoaxial articulation. Normal odontoid process. Normal cervical lordosis. Normal vertebral bodies and posterior osseous elements. C2-3: Normal endplates. Normal disc height, signal and morphology. Normal central canal and intervertebral neural foramina. C3-4: Normal endplates. Normal disc height, signal and tiny central disc protrusion.. Normal central canal and intervertebral neural foramina. C4-5: Normal endplates. Mildly narrowed disc height, signal and mild bulging of the disc.. Mild narrowing of central canal. Minor bilateral neural foraminal encroachment secondary to bony hypertrophy C5-6: Normal endplates. Mildly narrowed disc height, signal and normal morphology. Normal central canal and intervertebral neural foramina. C6-7: Mild anterior endplate spurring. Narrowed disc space and minimal endplate spurring.. Normal central canal. Minor left neural foraminal encroachment. C7-T1: Normal endplates. Normal disc height, signal and morphology. Normal central canal and intervertebral neural foramina. Normal cervical cord. Normal visualized soft tissue structures. No significant change since prior exam given inherent differences in imaging modalities MRI/Spine Cervical (Routine) IMPRESSION: No evidence for acute fracture or other significant bone pathology.. Mild spondylosis and multilevel spinal stenosis secondary to disc disease and bony hypertrophy most pronounced at C4-5 Findings as above Electronically Signed: Eron Xavier MD at 16:19 EDT Reading Location ID and State: [facility] / [place] Tel , Service support ,
== END | disposition home or self-care (01) ==
LOC: CVS 08:15
PROVIDERS: PCP Student in an Organized Health Care Education/Training Program; Referring Provider Orthopaedic Surgery Orthopaedic Surgery of the Spine; Visit Provider Orthopaedic Surgery Orthopaedic Surgery of the Spine
DX: G95.9 Disease of spinal cord, unspecified (principal); I70.221 Atherosclerosis of native arteries of extremities with rest pain, right leg; Z98.890 Other specified postprocedural states
CPT/HCPCS: 72141; 93923

== ENCOUNTER → 2024-10-09 | Outpatient (CLI) | payer MEDICARE, BC, SELFPAY ==
--- NOTE | 2024-10-09 12:55 | MRI_ITS ---
PROCEDURE: SPINE LUMBAR (ROUTINE) 10/09/2024 REASON FOR EXAM: RADICULOPATHY TECHNIQUE: SPINE LUMBAR (ROUTINE) FINDINGS: Slight degenerative anterolisthesis of L4 upon L5. No compression deformity. Normal conus. L1-2 is unremarkable. At L2-3, there is facet arthrosis without central stenosis. At L3-4, concentric disc bulging results in a mild degree of canal narrowing. Bulging disc narrows the right L3 neural foramen, abutting the nerve without nerve root displacement. At L4-5 there is mild spinal stenosis from bulging disc and osteophyte without foraminal impingement. At L5-S1 there is no central or foraminal narrowing. MRI/Spine Lumbar (Routine) IMPRESSION: Mild canal narrowing at L3-4 and L4-5. Additional degenerative changes as abov e Reading [facility]
== END | disposition home or self-care (01) ==
LOC: OPMRI 12:50
PROVIDERS: PCP Student in an Organized Health Care Education/Training Program; Referring Provider Anesthesiology Pain Medicine; Visit Provider Anesthesiology Pain Medicine
DX: M54.12 Radiculopathy, cervical region (principal)
CPT/HCPCS: 72148

== ENCOUNTER → 2024-12-01 | Outpatient (CLI) | payer MEDICARE, BC, SELFPAY ==
--- NOTE | 2024-12-01 12:33 | ART_ITS ---
Reason For Study Reason For Study: PVD Procedure A bilateral lower extremity continuous wave Doppler with analog waveform analysis,segmental pressures,and ankle brachial indexes with exercise. Left Segmental Pressures Left brachial= 121mmHg. Left posterior tibial artery = 127mmHg. Left dorsalis pedis artery = 126mmHg. Left digit = 87 mmHg. Right Segmental Pressures Right brachial= 122mmHg. Right posterior tibial artery = 82mmHg. Right dorsalis pedis artery = 81mmHg. Right digit = 72 mmHg. Indices The right ankle brachial index by the posterior tibial artery is 0.67. The right ankle brachial index by the dorsalis pedis is 0.66. The right digital-brachial index is 0.59. The right post exercise ankle brachial index is 0.59. The left ankle brachial index by the posterior tibial artery is 1.04. The left ankle brachial index by the dorsalis pedis is 1.03. The left digital-brachial index is 0.71. The left post exercise ankle brachial index is 1.08. VL/Lower Ext Art Exam w/ Exercise Interpretation Summary Right JENNIFER 0.67, moderate arterial insufficiency. Doppler/PVR waveforms of the r ight ankle moderately diminished at rest. Right lower extremity exhibits no change in response to exercise. Left JENNIFER 1.04, normal. Doppler/PVR waveforms of the left ankle normal at rest. TBI diminished, pedal/digit disease vs spasm. Left lower extremity exhibits normal response to exercise. Ordering Physician: Nisreen Valdes Referring Physician: Woody Hurd Performed By: Sheeba Smith RDCS/RVT
== END | disposition home or self-care (01) ==
LOC: CVS 12:32
PROVIDERS: PCP Student in an Organized Health Care Education/Training Program; Referring Provider Physician Assistant; Visit Provider Physician Assistant
DX: I73.9 Peripheral vascular disease, unspecified (principal)
CPT/HCPCS: 93924